=== PATIENT | female | born 1970 ===

== ENCOUNTER 2020-10-06 15:21 | Outpatient (REF) | payer OTHER, SELFPAY ==
--- NOTE | ~2020-10-06 | XR_ITS ---
EXAMINATION: XR BILATERAL SHOULDERS XR BILATERAL KNEES CLINICAL INFORMATION: Bilateral knee pain and bilateral shoulder pain. COMPARISON: Left knee 08/06/2006. TECHNIQUE: 2 views each knee. 4 views each shoulder. FINDINGS: Left Knee: There is severe loss of medial and patellofemoral compartment joint spaces with periarticular spurring. No abnormal joint effusion seen. No bony erosive changes. The soft tissues are normal. Right Knee: There is severe loss of medial and patellofemoral compartment joint spaces right knee with moderate periarticular spurring. There are no loose bodies or bony erosive changes. No abnormal joint effusion seen. Left Shoulder: There is normal maintained glenohumeral and AC joint spaces. No bony erosive changes. No fracture or dislocation. The soft tissues are normal. Right Shoulder: The glenohumeral and AC joint spaces are maintained. No periapical spurring AC joint is noted. No acute fracture, dislocation or loose body seen. The soft tissues are normal. XR/XR knee RT 2V IMPRESSION: Severe degenerative changes medial and patellofemoral compartments both knees with periarticular spurring. No loose bodies or joint effusion seen. Unremarkable left shoulder. Minimal periarticular spurring right AC joint. Otherwise, the shoulder joint is unremarkable.
--- NOTE | ~2020-10-06 | XR_ITS ---
EXAMINATION: XR BILATERAL SHOULDERS XR BILATERAL KNEES CLINICAL INFORMATION: Bilateral knee pain and bilateral shoulder pain. COMPARISON: Left knee 08/06/2006. TECHNIQUE: 2 views each knee. 4 views each shoulder. FINDINGS: Left Knee: There is severe loss of medial and patellofemoral compartment joint spaces with periarticular spurring. No abnormal joint effusion seen. No bony erosive changes. The soft tissues are normal. Right Knee: There is severe loss of medial and patellofemoral compartment joint spaces right knee with moderate periarticular spurring. There are no loose bodies or bony erosive changes. No abnormal joint effusion seen. Left Shoulder: There is normal maintained glenohumeral and AC joint spaces. No bony erosive changes. No fracture or dislocation. The soft tissues are normal. Right Shoulder: The glenohumeral and AC joint spaces are maintained. No periapical spurring AC joint is noted. No acute fracture, dislocation or loose body seen. The soft tissues are normal. XR/XR shoulder RT min 2V IMPRESSION: Severe degenerative changes medial and patellofemoral compartments both knees with periarticular spurring. No loose bodies or joint effusion seen. Unremarkable left shoulder. Minimal periarticular spurring right AC joint. Otherwise, the shoulder joint is unremarkable.
--- NOTE | ~2020-10-06 | XR_ITS ---
EXAMINATION: XR BILATERAL SHOULDERS XR BILATERAL KNEES CLINICAL INFORMATION: Bilateral knee pain and bilateral shoulder pain. COMPARISON: Left knee 08/06/2006. TECHNIQUE: 2 views each knee. 4 views each shoulder. FINDINGS: Left Knee: There is severe loss of medial and patellofemoral compartment joint spaces with periarticular spurring. No abnormal joint effusion seen. No bony erosive changes. The soft tissues are normal. Right Knee: There is severe loss of medial and patellofemoral compartment joint spaces right knee with moderate periarticular spurring. There are no loose bodies or bony erosive changes. No abnormal joint effusion seen. Left Shoulder: There is normal maintained glenohumeral and AC joint spaces. No bony erosive changes. No fracture or dislocation. The soft tissues are normal. Right Shoulder: The glenohumeral and AC joint spaces are maintained. No periapical spurring AC joint is noted. No acute fracture, dislocation or loose body seen. The soft tissues are normal. XR/XR knee LT 2V IMPRESSION: Severe degenerative changes medial and patellofemoral compartments both knees with periarticular spurring. No loose bodies or joint effusion seen. Unremarkable left shoulder. Minimal periarticular spurring right AC joint. Otherwise, the shoulder joint is unremarkable.
--- NOTE | ~2020-10-06 | XR_ITS ---
EXAMINATION: XR BILATERAL SHOULDERS XR BILATERAL KNEES CLINICAL INFORMATION: Bilateral knee pain and bilateral shoulder pain. COMPARISON: Left knee 08/06/2006. TECHNIQUE: 2 views each knee. 4 views each shoulder. FINDINGS: Left Knee: There is severe loss of medial and patellofemoral compartment joint spaces with periarticular spurring. No abnormal joint effusion seen. No bony erosive changes. The soft tissues are normal. Right Knee: There is severe loss of medial and patellofemoral compartment joint spaces right knee with moderate periarticular spurring. There are no loose bodies or bony erosive changes. No abnormal joint effusion seen. Left Shoulder: There is normal maintained glenohumeral and AC joint spaces. No bony erosive changes. No fracture or dislocation. The soft tissues are normal. Right Shoulder: The glenohumeral and AC joint spaces are maintained. No periapical spurring AC joint is noted. No acute fracture, dislocation or loose body seen. The soft tissues are normal. XR/XR shoulder LT min 2V IMPRESSION: Severe degenerative changes medial and patellofemoral compartments both knees with periarticular spurring. No loose bodies or joint effusion seen. Unremarkable left shoulder. Minimal periarticular spurring right AC joint. Otherwise, the shoulder joint is unremarkable.
[2020-10-06 16:01] LABS: MANUAL DIFF FLAG NO
[2020-10-06 16:04] LABS: Basophils Percent Auto 0.4 % (0-2); Eosinophils Percent Auto 0.5 % (0-4); Hematocrit 35.6 % (37-47); Hemoglobin 11.3 g/dl (12.0-16.0); Imm Gran Abs Auto 0.02 X10*3/uL (0.00-0.03); Imm Gran Pct Auto 0.3 % (0.0-0.4); Immature Retic Fraction 13.4 % (3.0-15.9); Lymphocytes Absolute Auto 1.7 X10*3/uL (1.2-4.9); Lymphocytes Percent Auto 22.4 % (20-40); Mean Corpuscular HGB Conc 31.7 g/dl (31.0-35.0); Mean Corpuscular Hemoglobin 27.5 pg (27.0-33.0); Mean Corpuscular Volume 86.6 fL (80-98); Mean Platelet Volume 9.5 fL (9.4-12.3); Monocytes Absolute Auto 0.4 X10*3/uL (0.1-1.2); Monocytes Percent Auto 5.9 % (2-11); Neutrophils Absolute Auto 5.2 X10*3/uL (2.0-8.3); Neutrophils Percent Auto 70.5 % (45-73); Platelet Count 322 X10*3/uL (160-400); Red Blood Count 4.11 X10*6/uL (4.20-5.50); Red Cell Distribution Width 15.5 % (11.0-16.0); Retic HGB Equivalent 30.1 pg (30.0-35.0); Reticulocyte Percent 1.9 % (0.5-1.8); Reticulocytes Absolute 0.078 X10*6/uL (0.026-0.095); White Blood Count 7.4 X10*3/uL (4.8-10.8)
[2020-10-06 16:17] LABS: Glucose Urine UA NEG (NEG); Leukocyte Esterase Urine NEG (NEG); Nitrite Urine NEG (NEG); Urine Blood 3+ (NEG); Urine Ketones NEG (NEG); Urine Protein 1+ MG/DL (NEG-TRACE)
[2020-10-06 16:28] LABS: Appearance Urine HAZY; Color Urine YELLOW
[2020-10-06 16:40] LABS: Alanine Aminotransferase 14 U/L (0-31); Alkaline Phosphatase 118 U/L (39-117); Anion Gap 13 (12-20); Aspartate Amino Transferase 14 U/L (5-31); Bilirubin Total 0.6 mg/dL (0.0-1.0); Blood Urea Nitrogen 11 mg/dL (9-16); Calcium 8.7 mg/dL (8.4-10.2); Carbon Dioxide 30 mmol/L (22-29); Chloride 104 mmol/L (96-108); Cholesterol 136 mg/dL; Estimated Glomerular Filt Rate > 60; Glucose Random 94 mg/dL (60-115); HDL Cholesterol 43 mg/dL; Iron 81 mcg/dL (30-160); LDL Cholesterol Calculated 47 mg/dl; Percent Iron Saturation 22 % (15-50); Potassium 4.1 mmol/L (3.3-5.1); Sodium 143 mmol/L (135-145); Total Iron Binding Capacity 371 mcg/dL (228-428); Triglycerides 230 mg/dL; Unsaturated Iron Binding 290 ug/dL
[2020-10-06 17:03] LABS: Ferritin 10 ng/mL (10-250); Free T4 (Free Thyroxine) 0.98 ng/dL (0.71-1.85); Thyroid Stimulating Hormone 0.96 uIU/mL (0.32-4.0); Vitamin D 25-OH Total 14.2 ng/mL (>30)
[2020-10-06 17:10] LABS: Folate 7.1 ng/mL (> or = 4.0); Vitamin B12 299 pg/mL (200-900)
[2020-10-06 17:15] LABS: Squamous Epithelial Cell Urine 4+ /LPF
[2020-10-07 03:55] LABS: Estimated Average Glucose 103 mg/dL; Hemoglobin A1c % 5.2 %
== END 2020-10-06 15:22 | disposition home or self-care (01) ==
LOC: HO.LAB 15:21
PROVIDERS: PCP Internal Medicine; Visit Provider Internal Medicine
DX: E78.00 Pure hypercholesterolemia, unspecified (principal); M25.511 Pain in right shoulder; M25.512 Pain in left shoulder; M25.561 Pain in right knee; M25.562 Pain in left knee; E66.01 Morbid (severe) obesity due to excess calories; Z68.43 Body mass index [BMI] 50.0-59.9, adult; D64.9 Anemia, unspecified; R73.02 Impaired glucose tolerance (oral)
CPT/HCPCS: 36415; 73030; 73560; 80053; 80061; 81001; 82306; 82607; 82728; 82746; 83036; 83540; 84439; 84443; 85025; 85045

== ENCOUNTER 2020-10-21 09:19 | Outpatient (REF) | payer OTHER, SELFPAY ==
[2020-10-22 11:32] LABS: CT PCR NOT DETECTED (Not Detect.); NG PCR NOT DETECTED (Not Detect.)
[2020-10-22 11:37] LABS: BV Int Neg Control Negative (Negative); BV Int Pos Control Positive (Positive)
[2020-10-23 22:17] LABS: HPV mRNA E6/E7 rflx Not Detected (Not Detected)
== END 2020-10-21 09:20 | disposition home or self-care (01) ==
LOC: HO.LAB 09:19
PROVIDERS: PCP Internal Medicine; Visit Provider Obstetrics & Gynecology
DX: Z01.419 Encounter for gynecological examination (general) (routine) without abnormal findings (principal); N89.8 Other specified noninflammatory disorders of vagina; E66.9 Obesity, unspecified; M79.89 Other specified soft tissue disorders; F17.210 Nicotine dependence, cigarettes, uncomplicated
CPT/HCPCS: 87480; 87491; 87510; 87591; 87624; 87660; 88142

== ENCOUNTER → 2021-02-06 08:40 | Outpatient (BNVA) | payer OTHER, SELFPAY | PROVIDERS: Visit Provider Nurse Practitioner | DX: Z12.11 Encounter for screening for malignant neoplasm of colon (principal) | CPT/HCPCS: 99202 ==

== ENCOUNTER 2021-04-01 13:03 | Outpatient (REF) | payer OTHER, SELFPAY ==
--- NOTE | ~2021-04-01 | MM_ITS ---
EXAMINATION: MM SCREENING DIGITAL BREAST TOMOSYNTHESIS, BILATERAL CLINICAL INFORMATION: Screening. Asymptomatic. Benign left ultrasound guided biopsy 5 10/21/2016 (benign breast tissue with portion of apocrine cyst). The lifetime risk of breast cancer based on the Tyrer-Cuzick Model is 7%. COMPARISON: Mammography: 07/03/2018, 05/26/2017, 11/18/2016, 11/10/2016; ultrasound 11/15/2016, ultrasound guided breast biopsy 11/18/2016. TECHNIQUE: Digital breast tomosynthesis is performed in both the craniocaudal and mediolateral oblique views along with computer-aided detection (CAD). Synthesized 2D images are generated from the tomosynthesis. Additional right MLO view is provided. FINDINGS: There are scattered areas of fibroglandular density (ACR BI-RADS breast composition Category b). There are no significant masses, abnormal calcifications, or other abnormalities. There is biopsy clip marker anterior 9:00 right breast. The bilateral axilla and skin contours are unremarkable. MM/MM tomosynthesis screening BI IMPRESSION: No mammographic evidence of malignancy. ASSESSMENT: BI-RADS 1: Negative RECOMMENDATION: Routine annual mammography screening. This patient's information was entered into a reminder system with a target due date for their next mammogram.
== END 2021-04-01 13:04 | disposition home or self-care (01) ==
LOC: HO.MAMMO 13:03
PROVIDERS: PCP Internal Medicine; Visit Provider Internal Medicine
DX: Z12.31 Encounter for screening mammogram for malignant neoplasm of breast (principal)
CPT/HCPCS: 77063; 77067

== ENCOUNTER → 2021-04-14 08:37 | Outpatient (BNVA) | payer OTHER, SELFPAY | PROVIDERS: PCP Internal Medicine; Visit Provider Nurse Practitioner ==

== ENCOUNTER → 2021-05-11 10:45 | Day surgery (SDC) | payer OTHER, SELFPAY ==
--- NOTE | 2021-03-27 13:25 | HO.ANESPROP2 ---
HPI - Anesthesia Eval Consult details Narrative: 51yo F for Colonoscopy PMFSH Active Problems Active Problems: All Active Problems (Updated 10/03/20 @ 14:24 by Spike Esposito MD) Breast cancer screening by mammogram (Acute) Cervical cancer screening (Acute) Colon cancer screening (Acute) Shoulder pain, bilateral (Acute) Knee pain, bilateral (Acute) Annual physical exam (Acute) Obesity (Acute) Tobacco abuse (Acute) Anemia (Acute) Impaired glucose tolerance (Acute) Asthma (Acute) Past Medical History Medical History Anemia Asthma Impaired glucose tolerance Obesity Tobacco abuse Family History Family History Father Stroke Mother No problems noted. Brother No problems noted. Sister Bipolar 1 disorder Son No problems noted. Daughter No problems noted. Surgical History Surgical History History of section Social History Social History Alcohol intake: current Alcohol intake frequency: a few times a week Years Smoked: smoker 2 x a week 1 Meds Allergies Allergy/AdvReac Type Severity Reaction Status Date / Time No Known Allergies Allergy Verified 03/25/21 11:28 Exam Exam Date and Time: March 27, 2021 1325 Assessment and Plan Assessment Anesthesia Assessment: Chart Reviewed
--- NOTE | 2021-05-08 09:32 | HO.ANESPROP2 ---
HPI - Anesthesia Eval Consult details Narrative: 51yo F for Colonoscopy PMFSH Active Problems Active Problems: All Active Problems (Updated 04/22/21 @ 12:11 by Spike Esposito MD) Osteoarthritis, shoulder (Acute) Knee osteoarthritis (Acute) Cervical cancer screening (Acute) Colon cancer screening (Acute) Obesity (Acute) Tobacco abuse (Acute) Anemia (Acute) Impaired glucose tolerance (Acute) Asthma (Acute) Past Medical History Medical History (Updated 04/22/21 @ 12:11 by Spike Esposito MD) Anemia Asthma Impaired glucose tolerance Obesity Tobacco abuse Family History Family History Father Stroke Mother No problems noted. Brother No problems noted. Sister Bipolar 1 disorder Son No problems noted. Daughter No problems noted. Surgical History Surgical History History of section Social History Social History Housing: Apartment Alcohol intake: current Alcohol intake frequency: a few times a week Patient Tobacco Use Status: Never used Tobacco Years Smoked: smoker 2 x a week 1 e-Cigarette/Vaping Use: Never Used Second Hand Smoke Exposure: No service: No Current occupational status: employed Meds Allergies Allergy/AdvReac Type Severity Reaction Status Date / Time No Known Allergies Allergy Verified 04/22/21 11:45 Exam Exam Date and Time: May 08, 2021 0932 Assessment and Plan Assessment Anesthesia Assessment: Chart Reviewed
--- NOTE | 2021-05-11 10:56 | PC.NURSE ---
Procedure cancelled by Dr Angel. Pt had chicken and pasta for dinner last night, took prep with brown liquid returns. Pt will reschedule with office
== END ==
PROVIDERS: PCP Internal Medicine; Visit Provider Internal Medicine Gastroenterology
DX: Z12.11 Encounter for screening for malignant neoplasm of colon (principal); Z53.8 Procedure and treatment not carried out for other reasons

== ENCOUNTER 2021-05-14 08:29 | Outpatient (REF) | payer OTHER, SELFPAY | END 2021-05-14 08:30 | disposition home or self-care (01) | LOC: HO.HOSX 08:29 | PROVIDERS: Visit Provider Orthopaedic Surgery | DX: Z13.89 Encounter for screening for other disorder (principal) ==

== ENCOUNTER 2021-06-04 09:04 | Outpatient (REF) | payer OTHER, SELFPAY ==
--- NOTE | ~2021-06-04 | XR_ITS ---
EXAMINATION: BILATERAL AP KNEES STANDING. BILATERAL KNEE.. CLINICAL INFORMATION: Bilateral knee pain. COMPARISON: None TECHNIQUE: AP view standing bilateral knee. 2 views each knee. FINDINGS: Bilateral AP knee standing: There is moderate to severe loss of medial compartment joint space both knees with periarticular spurring. There is mild loss of lateral compartment joint space both knees with right knee periarticular spurring. No fracture or loose body seen. Left knee: There is moderate loss of patellofemoral compartment joints space with moderate periarticular spurring no visible acute fracture or lytic process seen. Right knee: There is moderate loss of patellofemoral compartment joint space with periapical spurring. No abnormal joint effusion. No focal acute fracture or dislocation. XR/XR knee LT 2V IMPRESSION: Moderate degenerative changes medial and patellofemoral compartment both knees and mild degenerative changes in lateral compartment both knees No acute fracture or lytic process seen.
--- NOTE | ~2021-06-04 | XR_ITS ---
EXAMINATION: BILATERAL AP KNEES STANDING. BILATERAL KNEE.. CLINICAL INFORMATION: Bilateral knee pain. COMPARISON: None TECHNIQUE: AP view standing bilateral knee. 2 views each knee. FINDINGS: Bilateral AP knee standing: There is moderate to severe loss of medial compartment joint space both knees with periarticular spurring. There is mild loss of lateral compartment joint space both knees with right knee periarticular spurring. No fracture or loose body seen. Left knee: There is moderate loss of patellofemoral compartment joints space with moderate periarticular spurring no visible acute fracture or lytic process seen. Right knee: There is moderate loss of patellofemoral compartment joint space with periapical spurring. No abnormal joint effusion. No focal acute fracture or dislocation. XR/XR knee RT 2V IMPRESSION: Moderate degenerative changes medial and patellofemoral compartment both knees and mild degenerative changes in lateral compartment both knees No acute fracture or lytic process seen.
--- NOTE | ~2021-06-04 | XR_ITS ---
EXAMINATION: BILATERAL AP KNEES STANDING. BILATERAL KNEE.. CLINICAL INFORMATION: Bilateral knee pain. COMPARISON: None TECHNIQUE: AP view standing bilateral knee. 2 views each knee. FINDINGS: Bilateral AP knee standing: There is moderate to severe loss of medial compartment joint space both knees with periarticular spurring. There is mild loss of lateral compartment joint space both knees with right knee periarticular spurring. No fracture or loose body seen. Left knee: There is moderate loss of patellofemoral compartment joints space with moderate periarticular spurring no visible acute fracture or lytic process seen. Right knee: There is moderate loss of patellofemoral compartment joint space with periapical spurring. No abnormal joint effusion. No focal acute fracture or dislocation. XR/XR knee standing BI IMPRESSION: Moderate degenerative changes medial and patellofemoral compartment both knees and mild degenerative changes in lateral compartment both knees No acute fracture or lytic process seen.
== END 2021-06-04 09:05 | disposition home or self-care (01) ==
LOC: HO.HOSX 09:04
PROVIDERS: Visit Provider Orthopaedic Surgery
DX: M17.0 Bilateral primary osteoarthritis of knee (principal); E66.01 Morbid (severe) obesity due to excess calories; Z68.43 Body mass index [BMI] 50.0-59.9, adult; R73.02 Impaired glucose tolerance (oral)
CPT/HCPCS: 20610; 73560; 73565; 99202; J1100

== ENCOUNTER 2021-08-20 09:47 | Day surgery (SDC) | payer OTHER, SELFPAY ==
[2021-08-14 14:18] VITALS: BMI 50.9
--- NOTE | 2021-08-19 10:02 | HO.ANESPROP2 ---
Documented by User: Zoe Freire NP 08/19/21 10:13 HPI - Anesthesia Eval Consult details Narrative: 51yo F Colonoscopy PMFSH Active Problems Active Problems: All Active Problems (Updated 04/22/21 @ 12:11 by Spike Esposito MD) Osteoarthritis, shoulder (Acute) Knee osteoarthritis (Acute) Cervical cancer screening (Acute) Colon cancer screening (Acute) Obesity (Acute) Tobacco abuse (Acute) Anemia (Acute) Impaired glucose tolerance (Acute) Asthma (Acute) Past Medical History Medical History Anemia Asthma Impaired glucose tolerance Obesity Tobacco abuse Family History Family History Father Stroke Mother No problems noted. Brother No problems noted. Sister Bipolar 1 disorder Son No problems noted. Daughter No problems noted. Surgical History Surgical History History of section Hx of breast surgery Social History Social History (Updated 06/04/21 @ 11:20 by Marjan Guzman [facility]) Housing: Apartment Alcohol intake: current Alcohol intake frequency: a few times a week Patient Tobacco Use Status: Never used Tobacco Years Smoked: smoker 2 x a week 1 e-Cigarette/Vaping Use: Never Used Second Hand Smoke Exposure: No Use of substances other than those prescribed or required for medical reasons: No Are you DNR?: No Advance Directives: No Advance Directives Information Provided: Yes service: No Current occupational status: employed 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 Meds Allergies Allergy/AdvReac Type Severity Reaction Status Date / Time No Known Allergies Allergy Verified 08/20/21 10:17 Exam Exam Date and Time: August 19, 2021 1002 Height,Weight and Vital Signs: Height 5 ft 2 in Weight 126.36 kg Assessment and Plan Assessment Anesthesia Assessment: Chart Reviewed Documented by User: Cecille Torres MD 08/20/21 10:33 [facility] Past Medical History Medical History Anemia Asthma Impaired glucose tolerance Obesity Tobacco abuse Functional capacity: independent ambulation Patient : No Family History Family History Father Stroke Mother No problems noted. Brother No problems noted. Sister Bipolar 1 disorder Son No problems noted. Daughter No problems noted. Family history of problems with anesthesia: No Surgical History Surgical History History of section Hx of breast surgery History of Problems with Anesthesia: No Social History Social History (Updated 06/04/21 @ 11:20 by Marjan Guzman [facility]) Housing: Apartment Alcohol intake: current Alcohol intake frequency: a few times a week Patient Tobacco Use Status: Never used Tobacco Years Smoked: smoker 2 x a week 1 e-Cigarette/Vaping Use: Never Used Second Hand Smoke Exposure: No Use of substances other than those prescribed or required for medical reasons: No Are you DNR?: No Advance Directives: No Advance Directives Information Provided: Yes service: No Current occupational status: employed 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 Meds Allergies Allergy/AdvReac Type Severity Reaction Status Date / Time No Known Allergies Allergy Verified 08/20/21 10:17 Exam Airway Mallampati Class: IV TM Dist: >3cm Neck ROM: Full Heart: RRR Lungs: CTA Assessment and Plan Final Anesthetic Review Family History of Problems with Anesthesia: No History of Problems with Anesthesia: No ASA Class: III Final Preanesthetic Review: No Changes in Pt Med Stat, Meds/Allgs Chart Reviewed, Consent Obtained/Reviewed and Anes Risks/Benef Reviewed Patient Risk: Intermediate Procedure Risk: Low Anesthetic Plan Anesthetic Plan: MAC: Disposition: Standard PACU
--- NOTE | 2021-08-20 10:00 | MHC.SHP ---
Pre-Procedural Eval Section A Date of Service: 08/20/21 Section B Chief Complaint: Screening Relevant Family History (Specify if Yes): No Relevant Social History: Tobacco Use Present Medications: see Short Stay Collaborative assessment Medical History: Significant History (Anemia Asthma Impaired glucose tolerance Obesity Tobacco abuse) History of Previous Operations: Relevant previous surgery/procedure and date(s) (History of section) Allergies: Allergies Allergy/AdvReac Type Severity Reaction Status Date / Time No Known Allergies Allergy Verified 04/22/21 11:45 Review of Systems Sugical H&P ROS: Negative: Constitution, Cardiovascular, Respiratory, Neurological, Psychiatric, Hem-Onc, Allergic/Immunologic, Gastrointestinal, Genitourinary, Musculoskeletal, Integumentary, Endocrine and Eyes/Ears/Nose/Throat Exam Surgical H&P Exam: Normal: HEENT, Normal: Heart, Normal: Lungs, Normal: Extremities, Normal: Abdomen, Normal: Skin and Normal: Neurological Plan Diagnosis/Plan: Unchanged I have reviewed the history and physical and performed a pertinent physical examination on my patient. No changes have occurred unless specified.
[2021-08-20 10:15] VITALS: BP 161/79; PULSE 68; RESP 18; TEMP 36.6; O2SAT 97
[2021-08-20] MEDS: Lactated Ringers 1,000 ML 100 ML IVCONT (10:32)
--- NOTE | 2021-08-20 11:16 | P.OP_ITS ---
Operative Note Operative Note Date of Service: 08/20/21 Narrative: Operative Information Procedure Description: Colonoscopy COLONOSCOPY Instrument: Olympus variable stiffness adult scope 190L Colonoscopy Monitoring: Vital signs and clinical assessment, continuous EKG monitoring, Pulse oximetry, Carbon Dioxide monitoring and blood pressure monitoring were done throughout the procedure. Colon withdrawal time was 11 minutes. Procedure: The patient was placed in the left lateral decubitis position and pre-procedure medications were administered. After a digital rectal examination of the ano-rectum, the video colonoscope was inserted into the rectum and advanced through the colon to the cecum/TI. The colonoscope was slowly withdrawn in a retrograde panoramic fashion and the colon mucosa was carefully examined including a retroflexed view of the rectum. Findings and interventions are described below. Procedure Difficulty: easy Findings: Terminal Ileum-normal Cecum:normal Ascending Colon: normal Transverse Colon -normal Descending Colon:normal Sigmoid Colon: mild diverticulosis with small openings Rectum: Retroflexion with small internal hemorrhoids, grade I Anorectum - normal Colon preparation: [place] Bowel Preparation Scale Right colon; 2 Transverse colon: 2 Left colon; 2 (0 = Unprepared colon segment with mucosa not seen due to solid stool that cannot be cleared. 1 = Portion of mucosa of the colon segment seen, but other areas of the colon segment not well seen due to staining, residual stool and/or opaque liquid. 2 = Minor amount of residual staining, small fragments of stool and/or opaque liquid, but mucosa of colon segment seen well. 3 = Entire mucosa of colon segment seen well with no residual staining, small fragments of stool or opaque liquid) Impression and Post Procedure Diagnosis: internal hemorrhoids diverticular disease Plan: High fiber diet leaflet Avoid straining at stool, epsom salts and sitz bath, anusol supps or cream Repeat Colonoscopy in 10 years or earlier if clinically indicated Above findings were reviewed with the patient and relevant handouts were provided if indicated.
--- NOTE | 2021-08-20 11:16 | P.BOP_ITS ---
Brief Operative Note Date of Service: 08/20/21 Pre-op diagnosis: colon cancer screening Post-op diagnosis: same Procedure: see op note Surgeon: Edwige Isbell MD Anesthesia: MAC Was an Fiberglass Boat Finisher used for this Procedure?: No Estimated blood loss (mL): 0 Condition: stable Disposition: PACU
--- NOTE | 2021-08-20 11:43 | P.CONAN_ITS ---
[facility] Active Problems Active Problems: All Active Problems (Updated 04/22/21 @ 12:11 by Spike Esposito MD) Colon cancer screening (Acute) Cervical cancer screening (Acute) Knee osteoarthritis (Acute) Osteoarthritis, shoulder (Acute) Obesity (Acute) Tobacco abuse (Acute) Anemia (Acute) Impaired glucose tolerance (Acute) Asthma (Acute) Past Medical History Medical History Anemia Asthma Impaired glucose tolerance Obesity Tobacco abuse Functional capacity: independent ambulation Family History Family History Father Stroke Mother No problems noted. Brother No problems noted. Sister Bipolar 1 disorder Son No problems noted. Daughter No problems noted. Family history of problems with anesthesia: No Surgical History Surgical History History of section Hx of breast surgery History of Problems with Anesthesia: No Social History Social History (Updated 06/04/21 @ 11:20 by Marjan Guzman 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 Meds Allergies Allergy/AdvReac Type Severity Reaction Status Date / Time No Known Allergies Allergy Verified 08/20/21 10:17 Active Medications: Current Medications Albuterol Sulfate (Albuterol Sulfate (0.083%) 2.5 Mg/3 Ml Vial.Neb) 2.5 mg INHALE ONCE PRN PRN Reason: Shortness of Breath/Wheezing Lactated Ringer's (Lr) 1,000 mls @ 100 mls/hr IVCONT .Q10H NATALI Last Admin: 08/20/21 10:32 Dose: 100 mls/hr Documented by: Exam Exam Date and Time: August 20, 2021 1143 Height,Weight and Vital Signs: Height 5 ft 2 in Weight 126.36 kg Last Vital Signs Temp 97.8 F 08/20/21 10:15 Pulse 68 08/20/21 10:15 Resp 18 08/20/21 10:15 BP 161/79 H 08/20/21 10:15 Pulse Ox 97 08/20/21 10:15 Airway Mallampati Class: III TM Dist: >3cm Neck ROM: Full Heart: RRR Lungs: CTA Assessment and Plan Final Anesthetic Review Family History of Problems with Anesthesia: No History of Problems with Anesthesia: No ASA Class: III Final Preanesthetic Review: No Changes in Pt Med Stat, Meds/Allgs Chart Reviewed, Consent Obtained/Reviewed and Anes Risks/Benef Reviewed Patient Risk: Intermediate Procedure Risk: Low Anesthetic Plan Anesthetic Plan: MAC: Disposition: Standard PACU
[2021-08-20 12:05] VITALS: BP 104/60; PULSE 81; RESP 16; TEMP 36.7; O2SAT 94
[2021-08-20 12:20] VITALS: BP 111/75; PULSE 65; RESP 16; O2SAT 98
--- NOTE | 2021-08-20 12:57 | HO.POSTANES ---
Post Anesthesia Evaluation Post Anesthesia Evaluation Vital Signs: Vital Signs Temp Pulse Resp BP Pulse Ox 08/20/21 12:20 65 16 111/75 98 08/20/21 12:05 98.0 F 81 16 104/60 94 08/20/21 10:15 97.8 F 68 18 161/79 H 97 Anesthesia: Monitored Mental Status: Awake Pain Control: Satisfactory Nausea/Vomiting: None Hydration: Adequate Anesthesia-Related Issues: No Anes. Related Issues
== END 2021-08-20 12:55 | disposition home or self-care (01) ==
PROVIDERS: PCP Internal Medicine; Visit Provider Internal Medicine Gastroenterology
PROC: 0DJD8ZZ Inspection of Lower Intestinal Tract, Via Natural or Artificial Opening Endoscopic (ICD-10-PCS; CPT 45378; principal; 2021-08-20 11:10)
DX: Z12.11 Encounter for screening for malignant neoplasm of colon (principal); K57.30 Diverticulosis of large intestine without perforation or abscess without bleeding; K64.0 First degree hemorrhoids; D64.9 Anemia, unspecified; J45.909 Unspecified asthma, uncomplicated; R73.02 Impaired glucose tolerance (oral); E66.9 Obesity, unspecified; Z79.899 Other long term (current) drug therapy; Z72.0 Tobacco use
CPT/HCPCS: 45378

== ENCOUNTER → 2021-10-15 11:59 | Outpatient (BNVA) | payer OTHER, SELFPAY | PROVIDERS: PCP Internal Medicine; Referring Provider Internal Medicine; Visit Provider Nurse Practitioner | DX: Z71.2 Person consulting for explanation of examination or test findings (principal) | CPT/HCPCS: 99212 ==

== ENCOUNTER 2021-12-11 09:21 | Outpatient (REF) | payer OTHER, SELFPAY ==
[2021-12-11 09:44] LABS: MANUAL DIFF FLAG NO
[2021-12-11 10:11] LABS: Basophils Percent Auto 0.4 % (0-2); Eosinophils Absolute Auto 0.1 X10*3/uL (0.0-0.4); Eosinophils Percent Auto 0.6 % (0-4); Hematocrit 37.3 % (37.0-47.0); Hemoglobin 12.1 g/dl (12.0-16.0); Imm Gran Abs Auto 0.03 X10*3/uL (0.00-0.03); Imm Gran Pct Auto 0.4 % (0.0-0.4); Immature Retic Fraction 10.1 % (3.0-15.9); Lymphocytes Absolute Auto 2.2 X10*3/uL (1.2-4.9); Lymphocytes Percent Auto 26.4 % (20-40); Mean Corpuscular HGB Conc 32.4 g/dl (31.0-35.0); Mean Corpuscular Hemoglobin 29.4 pg (27.0-33.0); Mean Corpuscular Volume 90.5 fL (80.0-98.0); Mean Platelet Volume 9.7 fL (9.4-12.3); Monocytes Absolute Auto 0.6 X10*3/uL (0.1-1.2); Neutrophils Absolute Auto 5.4 x10*3/uL (2.0-8.3); Neutrophils Percent Auto 65.2 % (45-73); Platelet Count 332 X10*3/uL (160-400); Red Blood Count 4.12 X10*6/uL (4.20-5.50); Retic HGB Equivalent 34.6 pg (30.0-35.0); Reticulocyte Percent 2.2 % (0.5-1.8); Reticulocytes Absolute 0.091 X10*6/uL (0.026-0.095); White Blood Count 8.2 X10*3/uL (4.8-10.8)
[2021-12-11 10:20] LABS: Estimated Average Glucose 111 mg/dL; Hemoglobin A1c % 5.5 %
[2021-12-11 10:43] LABS: Alanine Aminotransferase 15 U/L (0-31); Alkaline Phosphatase 115 U/L (39-117); Anion Gap 12 (12-20); Aspartate Amino Transferase 16 U/L (5-31); Bilirubin Total 0.5 mg/dL (0.0-1.0); Blood Urea Nitrogen 13 mg/dL (9-16); Calcium 9.3 mg/dL (8.4-10.2); Carbon Dioxide 27 mmol/L (22-29); Chloride 105 mmol/L (96-108); Cholesterol 193 mg/dL; Estimated Glomerular Filt Rate > 60; Glucose Random 109 mg/dL (60-115); HDL Cholesterol 51 mg/dL; Iron 50 mcg/dL (30-160); LDL Cholesterol Calculated 111 mg/dl; Percent Iron Saturation 15 % (15-50); Potassium 4.2 mmol/L (3.3-5.1); Sodium 140 mmol/L (135-145); Total Iron Binding Capacity 336 mcg/dL (228-428); Total Protein 7.1 g/dL (6.5-8.0); Triglycerides 156 mg/dL; Unsaturated Iron Binding 286 ug/dL
[2021-12-11 11:08] LABS: Ferritin 70 ng/mL (10-250); Free T4 (Free Thyroxine) 1.07 ng/dL (0.71-1.85); Thyroid Stimulating Hormone 1.34 uIU/mL (0.32-4.0); Vitamin D 25-OH Total 12.2 ng/mL (>30)
[2021-12-11 11:14] LABS: Folate 12.1 ng/mL (> or = 4.0); Vitamin B12 333 pg/mL (200-900)
== END 2021-12-11 09:22 | disposition home or self-care (01) ==
LOC: HO.LAB 09:21
PROVIDERS: PCP Internal Medicine; Visit Provider Internal Medicine
DX: M17.0 Bilateral primary osteoarthritis of knee (principal); R73.02 Impaired glucose tolerance (oral); D64.9 Anemia, unspecified; E78.00 Pure hypercholesterolemia, unspecified
CPT/HCPCS: 20610; 36415; 80053; 80061; 82306; 82607; 82728; 82746; 83036; 83540; 84439; 84443; 85025; 85045; 99212; J1100

== ENCOUNTER 2022-04-12 12:24 | Outpatient (REF) | payer OTHER, SELFPAY ==
--- NOTE | ~2022-04-12 | MM_ITS ---
EXAMINATION: MM SCREENING DIGITAL BREAST TOMOSYNTHESIS, BILATERAL CLINICAL INFORMATION: Screening. Asymptomatic. The lifetime risk of breast cancer based on the Tyrer-Cuzick Model is 6%. COMPARISON: Mammography: 04/01/2021, 07/03/2018, 05/26/2017, 11/18/2016, 11/10/2016 TECHNIQUE: Digital breast tomosynthesis is performed in both the craniocaudal and mediolateral oblique views along with computer-aided detection (CAD). Synthesized 2D images are generated from the tomosynthesis. FINDINGS: There are scattered areas of fibroglandular density (ACR BI-RADS breast composition Category b). There are no significant masses, abnormal calcifications, or other abnormalities. There is no interval architectural abnormality or developing density. Biopsy clip marker again seen anterior upper outer right breast. The axilla and skin contours are unremarkable. MM/MM tomosynthesis screening BI IMPRESSION: No mammographic evidence of malignancy. ASSESSMENT: BI-RADS 1: Negative RECOMMENDATION: Routine annual mammography screening. This patient's information was entered into a reminder system with a target due date for their next mammogram.
== END 2022-04-12 12:25 | disposition home or self-care (01) ==
LOC: HO.MAMMO 12:24
PROVIDERS: PCP Internal Medicine; Visit Provider Internal Medicine
DX: Z12.31 Encounter for screening mammogram for malignant neoplasm of breast (principal)
CPT/HCPCS: 77063; 77067

== ENCOUNTER 2022-10-06 12:00 | Outpatient (RCR) | payer OTHER, SELFPAY ==
--- NOTE | 2022-08-25 14:59 | MHC.PT.EP ---
[facility] [place] Office [place] Office [place] Office [address] [phone] F: [phone] F: [phone] F: [phone] F: [phone] Physical Therapy Plan of Care Date of Evaluation: Date of Surgery: N/A Diagnosis: pain in the right knee (RC) Assessment: pt is a 52 y/o female presenting to physical therapy w/ referring diagnosis of pain in right knee. pt's signs and symptoms consistent w/ B knee OA and gross deconditioning. Impairments include pain, decreased range of motion, decreased strength, impaired functional mobility, impaired postural awareness, and altered ambulation mechanics. pt is a good candidate for skilled PT due to age, potential remediation of impairments, typical disease/condition progression and prognosis, comorbidities, and motivation. pt would benefit from skilled PT intervention to provide a tailored strengthening and stretching exercise program, functional training, gait training, postural re-training, neuromuscular re-education, modalities as needed for pain, equipment safety demonstration. Frequency and Duration: The patient will be seen 2x/wk for 4 wks Short Term Goals: pt will be I w/ HEP to promote self-management of condition. pt will improve B knee flexion by 10 degrees to promote ease in ambulation and sitting tolerance. Halfway Goals: pt will report a statistically significant improvement in self-reported outcome measure, LEFI, to promote return to PLOF. pt will ascend/descend 10 stairs w/ reciprocal pattern using railing to promote ease in accessing primary living spaces. Treatment Plan: Modalities to reduce pain, spasms and effusion. Manual therapy to restore motion and function. Therapeutic exercise to improve strength and flexibility. Neuromuscular re-education for posture and balance. Therapeutic activities to return to functional activities of daily living. Electronically signed by: Mouna Angeles PT, DPT Please sign and return to therapist. Thank you for your referral.
--- NOTE | 2022-10-18 16:48 | MHC.PT.DC ---
[facility] [place] Office [place] Office [place] Office [address] 140 [facility] [phone] F: [phone] F: [phone] F: [phone] F: [phone] Physical Therapy Discharge Report Diagnosis: pain in the right knee (RC) Date of Surgery: N/A Date of Evaluation: 08/25/22 Date of Discharge: 10/18/22 Treatments to Date: 6 Cancellations to Date: 5 No Shows to Date: 0 Discharge Status: Patient Elected to Stop Discharge Summary: Per last treatment note on 10/06/22: pt overall not reporting any difference in her symptoms w/ PT thus far. To be honest, she has had poor attendance as she has not been here in 2 weeks. Questionable compliance w/ HEP as well. pt unsure if she wants to continue w/ PT at this time. She sees her primary care next Tuesday. She is going to follow-up w/ Dr. Esposito and determine if she wants to continue to pursue further PT at the time. Electronically signed by: Mouna Angeles PT, DPT Please sign and return to therapist. Thank you for your referral.
== END 2022-10-18 16:48 | disposition home or self-care (01) ==
LOC: HO.PT 12:00
PROVIDERS: PCP Internal Medicine; Visit Provider Nurse Practitioner Family
DX: M25.561 Pain in right knee (principal)
CPT/HCPCS: 97110; 97162; 97530

== ENCOUNTER → 2022-10-27 12:41 | Outpatient (REF) | payer OTHER, SELFPAY ==
[2022-10-27 12:51] LABS: MANUAL DIFF FLAG NO
[2022-10-27 13:16] LABS: Basophils Absolute Auto 0.1 X10*3/uL (0.0-0.2); Basophils Percent Auto 0.7 % (0-2); Eosinophils Absolute Auto 0.1 X10*3/uL (0.0-0.4); Eosinophils Percent Auto 0.7 % (0-4); Hemoglobin 12.5 g/dl (12.0-16.0); Imm Gran Abs Auto 0.03 X10*3/uL (0.00-0.03); Imm Gran Pct Auto 0.3 % (0.0-0.4); Immature Retic Fraction 13.4 % (3.0-15.9); Lymphocytes Absolute Auto 2.4 X10*3/uL (1.2-4.9); Lymphocytes Percent Auto 27.7 % (20-40); Mean Corpuscular HGB Conc 32.9 g/dl (31.0-35.0); Mean Corpuscular Hemoglobin 29.5 pg (27.0-33.0); Mean Corpuscular Volume 89.6 fL (80.0-98.0); Mean Platelet Volume 9.9 fL (9.4-12.3); Monocytes Absolute Auto 0.6 X10*3/uL (0.1-1.2); Monocytes Percent Auto 6.6 % (2-11); Neutrophils Absolute Auto 5.6 x10*3/uL (2.0-8.3); Platelet Count 320 X10*3/uL (160-400); Red Blood Count 4.24 X10*6/uL (4.20-5.50); Red Cell Distribution Width 13.3 % (11.0-16.0); Retic HGB Equivalent 35.5 pg (30.0-35.0); Reticulocytes Absolute 0.086 X10*6/uL (0.026-0.095); White Blood Count 8.8 X10*3/uL (4.8-10.8)
[2022-10-27 13:22] LABS: Estimated Average Glucose 111 mg/dL; Hemoglobin A1c % 5.5 %
[2022-10-27 13:45] LABS: Alanine Aminotransferase 15 U/L (0-31); Alkaline Phosphatase 107 U/L (39-117); Anion Gap 12 (12-20); Aspartate Amino Transferase 15 U/L (5-31); Bilirubin Total 0.5 mg/dL (0.0-1.0); Blood Urea Nitrogen 12 mg/dL (9-16); Calcium 9.1 mg/dL (8.4-10.2); Carbon Dioxide 29 mmol/L (22-29); Chloride 103 mmol/L (96-108); Cholesterol 210 mg/dL; Estimated Glomerular Filt Rate > 60; Glucose Random 112 mg/dL (60-115); HDL Cholesterol 48 mg/dL; Iron 81 mcg/dL (30-160); LDL Cholesterol Calculated 110 mg/dl; Percent Iron Saturation 26 % (15-50); Potassium 4.3 mmol/L (3.3-5.1); Sodium 140 mmol/L (135-145); Total Iron Binding Capacity 306 mcg/dL (228-428); Total Protein 6.9 g/dL (6.5-8.0); Triglycerides 262 mg/dL; Unsaturated Iron Binding 225 ug/dL
[2022-10-27 13:53] LABS: Appearance Urine Cloudy; Color Urine Yellow; Glucose Urine UA Negative (Negative); Leukocyte Esterase Urine Small (1+) (Negative); Nitrite Urine Negative (Negative); UMIC TRIGGER UA YES; Urine Blood Large (3+) (Negative); Urine Ketones Negative (Negative); Urine Protein 30 (1+) mg/dL (Neg-Trace)
[2022-10-27 14:02] LABS: Bacteria Urine Trace (None Seen); Hyaline Casts Urine 0-2 /LPF (0-2); RBC Urine >20 /HPF (0-2); Squamous Epithelial Cell Urine >20 /HPF (0-2)
[2022-10-27 14:13] LABS: Ferritin 75 ng/mL (10-250); Folate 14.6 ng/mL (> or = 4.0); Free T4 (Free Thyroxine) 1.07 ng/dL (0.71-1.85); Thyroid Stimulating Hormone 1.31 uIU/mL (0.32-4.0); Vitamin B12 531 pg/mL (200-900); Vitamin D 25-OH Total 33.5 ng/mL (>30)
== END ==
LOC: HO.SL 12:41
PROVIDERS: PCP Internal Medicine; Visit Provider Internal Medicine
DX: R73.02 Impaired glucose tolerance (oral) (principal); E78.00 Pure hypercholesterolemia, unspecified; G47.33 Obstructive sleep apnea (adult) (pediatric)
CPT/HCPCS: 36415; 80053; 80061; 81001; 82306; 82607; 82728; 82746; 83036; 83540; 84439; 84443; 85025; 85045; 95806

== ENCOUNTER 2023-02-02 13:31 | Outpatient (AMB) | payer OTHER, SELFPAY ==
--- NOTE | 2023-02-02 13:53 | MHC.OFFVIS ---
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 Scribed for ISABELL Mata by Rosana Yan medical collector, on 02/02/2023 at 2:29 pm EST. Chemical Processing Laborer Required: No Information Interpreted: non-clinical & clinical Plumber'S Assistant: Plumber'S Assistant Present (Aidyn) Allergies No Known Allergies Allergy (Verified 02/02/23 13:58) Is last menstrual period known: No HPI HPI Comments History of Present Illness Details She is a postmenopausal woman presenting for annual exam. Reports her last menses was over a year ago and has experienced occasional spotting since then with pelvic cramping. Patient admits she tries to eat a healthy diet including Calcium and Vitamin D. Currently not sexually active. Denies vaginal itching and irritation. STD screening offered; she accepts. Denies family hx of breast, colon and ovarian cancer. Last pap smear 10/22/20 Last mammogram 04/12/22 UTD on colonoscopy. [facility] Medical History Anemia Asthma Bilateral knee pain Bilateral shoulder pain Impaired glucose tolerance Moderate obstructive sleep apnea Obesity Pelvic cramping PMB (postmenopausal bleeding) Tobacco abuse Surgical History H/O colonoscopy History of section Hx of breast surgery Family History Father Stroke Mother No problems noted. Brother No problems noted. Sister Bipolar 1 disorder Son No problems noted. Daughter No problems noted. 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 Cognitive needs: No Hearing needs: No Vision needs: Yes Female Reproductive History Menstrual Age of Menarche: 11 control method: permanent sterilization Total pregnancies: 3 Full term: 3 Number of Living Children: 3 Date of last pap smear: 10/22/20 (negative) Date of Mammogram: 04/12/22 Physical Exam Vital Signs: Last Vital Signs BP 138/76 02/02/23 13:54 BMI result Body Mass Index 53.4 Const General: cooperative, healthy appearing, no acute distress, well developed and alert Orientation/consciousness: patient oriented x3 HEENT Head: Yes normal to inspection Eyes General: appearance normal, both eyes and all related structures Neck Neck: Yes normal visual inspection Thyroid: Thyroid normal Chest Chest palpation & inspection: normal inspection of the chest Breast/axilla inspection: normal inspection of the breasts (no puckering, dimpling, peau de orange, retraction, discharge, masses) Breast/axilla palpation: normal palpation of the breasts Resp Effort & Inspection: normal respiratory effort GI Inspection: Yes normal to inspection and Yes obesity Palpation (GI): Soft to palpation (to palpation) Rectal Exam - Female: deferred Other: small amount of blood noted during exam. General: Yes bladder normal to inspection External Female Exam: normal external appearance and normal appearance of the urethra Speculum Exam - Vagina: normal appearance of the vagina, normal palpation and normal vaginal discharge Speculum Exam - Cervix: normal appearance of the cervix and normal palpation Bimanual exam- vagina & uterus: normal palpation and normal palpation Bimanual Exam- Adnexa, other: normal adnexae and no masses Skin General skin exam: no rashes or lesions noted Neuro General: patient oriented x3 Cognition (Neuro): normal cognition Extrem General: Yes normal to inspection Psych Attitude: cooperative Thought process: Normal thought process present Assessment & Plan Assessment & Plan (1) Encounter for well woman exam: Code(s): Z01.419 - Encounter for gynecological examination (general) (routine) without abnormal findings Plan: Discussed: Current recommendations for pap smears per ASCCP guidelines. Breast awareness and periodic self breast exams. Encouraged yearly mammograms. Maintaining a healthy lifestyle including a well balanced diet including Calcium and Vitamin D and routine exercise. Discussed work up including pelvic US and EMB. The EMB purpose was explained to rule out atypia, hyperplasia and uterine cancer. Reviewed procedure and instructed to take ibuprofen with food 1 hour prior to procedure. Follow up in person for results. Pap, BV testing and GC/CT panel done today. Await results and treat accordingly. Encouraged patient to sign up for patient portal. All of her questions and concerns were addressed to the best of my ability RTO in 1 year for AG. (2) Pelvic cramping: Code(s): R10.2 - Pelvic and perineal pain (3) PMB (postmenopausal bleeding): Code(s): N95.0 - Postmenopausal bleeding Orders: Orders US pelvic and transvaginal Today N95.0 - Postmenopausal bleeding Bacterial Vaginosis Panel Today N95.0 - Postmenopausal bleeding CT NG by PCR Today N95.0 - Postmenopausal bleeding Pap Smear Today N95.0 - Postmenopausal bleeding Coding Level of Care Code Est Pt Prev Care 40-64y(99173) Diagnoses Encounter for well woman exam Z01.419 Pelvic cramping R10.2 PMB (postmenopausal bleeding) N95.0
[2023-02-02 13:54] VITALS: BP 138/76; BMI 53.4
== END 2023-02-02 15:54 | disposition home or self-care (01) ==
LOC: HO.HWS 13:31
PROVIDERS: PCP Internal Medicine; Visit Provider Advanced Practice Midwife
DX: Z01.419 Encounter for gynecological examination (general) (routine) without abnormal findings (principal); R10.2 Pelvic and perineal pain; N95.0 Postmenopausal bleeding
CPT/HCPCS: 99396

== ENCOUNTER 2023-02-02 13:31 | Outpatient (REF) | payer OTHER, SELFPAY ==
[2023-02-03 11:25] LABS: CT PCR NOT DETECTED (Not Detect.); NG PCR NOT DETECTED (Not Detect.)
[2023-02-03 14:07] LABS: BV Int Neg Control Negative (Negative); BV Int Pos Control Positive (Positive)
[2023-02-08 21:23] LABS: HPV mRNA E6/E7 rflx Not Detected (Not Detected)
== END 2023-02-02 13:32 | disposition home or self-care (01) ==
LOC: HO.LNP 13:31
PROVIDERS: PCP Internal Medicine; Visit Provider Advanced Practice Midwife
DX: Z01.419 Encounter for gynecological examination (general) (routine) without abnormal findings (principal); N95.0 Postmenopausal bleeding; R10.2 Pelvic and perineal pain; Z20.2 Contact with and (suspected) exposure to infections with a predominantly sexual mode of transmission
CPT/HCPCS: 0353U; 87480; 87510; 87624; 87660; 88142

== ENCOUNTER 2023-03-31 14:08 | Outpatient (REF) | payer OTHER, SELFPAY ==
--- NOTE | ~2023-03-31 | US_ITS ---
EXAMINATION: US PELVIS CLINICAL INFORMATION: Postmenopausal bleeding. COMPARISON: None available. TECHNIQUE: Ultrasound of the pelvis is performed using both transabdominal and transvaginal transducers along with Doppler. Transvaginal imaging is performed due to inadequate visualization transabdominally. FINDINGS: Uterus: The uterus is anteverted and measures 8.8 x 3.9 x 4.9 cm. The double wall endometrial thickness is 0.9 mm. The uterus is smooth in contour and has normal myometrial echogenicity. No visible fibroid. Nabothian cysts are present in the cervix. Adnexa: Neither ovary could be seen. US/US pelvic and transvaginal IMPRESSION: 1. Abnormally thickened endometrium for a postmenopausal patient. Consider short term interval repeat ultrasound or endometrial biopsy. 2. Neither ovary could be seen.
== END 2023-03-31 14:09 | disposition home or self-care (01) ==
LOC: HO.US 14:08
PROVIDERS: PCP Internal Medicine; Visit Provider Advanced Practice Midwife
DX: N95.0 Postmenopausal bleeding (principal)
CPT/HCPCS: 76830; 76856

== ENCOUNTER 2023-04-13 10:08 | Outpatient (AMB) | payer OTHER, SELFPAY ==
[2023-04-13 10:18] VITALS: BP 120/78; BMI 52.5
--- NOTE | 2023-04-13 10:18 | A.OFFVIS_ITS ---
Intake Vital Signs 04/13/23 10:18 Height 5 ft 2 in Weight 287 lb BMI 52.5 BP 120/78 Intake Visit Reasons: Ultra sound follow up Intake Note: The patient agreed to use of a back office medical assistant during this encounter. Scribed for ISABELL Mata by Rosana Yan back office medical assistant, on 04/13/2023 at 10:28 am EST. Allergies No Known Allergies Allergy (Verified 04/13/23 13:13) HPI HPI Comments History of Present Illness Details She is here to discuss US results regarding PMB. Reports VB has stopped. EMB today. See procedure note. PFSH Medical History PMB (postmenopausal bleeding) Pelvic cramping Moderate obstructive sleep apnea Bilateral shoulder pain Bilateral knee pain Obesity Tobacco abuse Anemia Impaired glucose tolerance Asthma Surgical History H/O colonoscopy Hx of breast surgery History of section Family History Father Stroke Mother No problems noted. Brother No problems noted. Sister Bipolar 1 disorder Son No problems noted. Daughter No problems noted. 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 Cognitive needs: No Hearing needs: No Vision needs: Yes Female Reproductive History Menstrual Age of Menarche: 11 Physical Exam Vital Signs: Last Vital Signs BP 120/78 04/13/23 10:18 BMI result Body Mass Index 52.5 Const General: cooperative, healthy appearing, comfortable, no acute distress, well developed, alert and awake Other: General: Yes bladder normal to palpation External Female Exam: normal external appearance and normal appearance of the urethra Speculum Exam - Vagina: normal appearance of the vagina, normal palpation and normal vaginal discharge Speculum Exam - Cervix: normal appearance of the cervix and normal palpation Bimanual exam- vagina & uterus: normal bimanual exam, normal palpation, bladder normal to palpation and normal palpation Bimanual Exam- Adnexa, other: normal adnexae and no masses Office Procedures Endometrial Biopsy Details: HPI The patient is here today for an endometrial biopsy for PMB to rule out any pathology including atypical, hyperplasia or cancer cells of the uterus. She was counseled regarding anticipatory guidance for the procedure including the risks for pain, infection, bleeding, perforation, potential injury to the tissues may include the cervix, uterus, tubes, bladder and bowels. These injuries may include further treatment and evaluation including surgery, blood transfusions, antibiotics, hospitalizations and anesthesia. Permanent injury and scarring can occur. She was consented for the procedure, and the consent forms were signed. She is agreeable to have the procedure today. All questions were answered. A urine test was obtained and was negative. She denies any risks to . Endometrial Biopsy Procedure The patient was placed in the dorsal lithotomy position and a sterile speculum inserted. Using aseptic technique for the procedure. The cervix was cleansed with Betadine x 3 swabs. Despite repositioning of the tenaculum, unable to pass the pipele beyond the internal os, and due to limited visualization, procedure was not performed, tissue sampling was not obtained. Minimal bleeding was observed. The patient tolerated the procedure well and was in good condition when leaving the department. Endometrial Biopsy Post Procedure Care Schedule EMB with Dr. Helms due to failed procedure. Nothing in the vagina including: tampons, douching or sex for 3 days. There may be some post procedure bleeding for several days, this bleeding is usually light and may turn to a light brown or pink color. Mild cramps may occur. You may take an over the counter mild analgesic such as Tylenol or Advil (if no allergies) per the manufacturers recommendation on dosing, frequency, and follow the directions completely. Call the office if any: SOB, fatigue, lightheadedness/dizziness, abd pain (worse than cramping), bloating or abd distention, foul odor or abnormal discharge or heavy vaginal bleeding. [id number] Biopsy Results Reviewed Results Reviewed: EXAMINATION: US PELVIS CLINICAL INFORMATION: Postmenopausal bleeding. COMPARISON: None available. TECHNIQUE: Ultrasound of the pelvis is performed using both transabdominal and transvaginal transducers along with Doppler. Transvaginal imaging is performed due to inadequate visualization transabdominally. FINDINGS: Uterus: The uterus is anteverted and measures 8.8 x 3.9 x 4.9 cm. The double wall endometrial thickness is 0.9 mm. The uterus is smooth in contour and has normal myometrial echogenicity. No visible fibroid. Nabothian cysts are present in the cervix. Adnexa: Neither ovary could be seen. US/US pelvic and transvaginal IMPRESSION: 1. Abnormally thickened endometrium for a postmenopausal patient. Consider short term interval repeat ultrasound or endometrial biopsy. 2. Neither ovary could be seen. Assessment & Plan Assessment & Plan (1) Encounter to discuss test results: Code(s): Z71.2 - Person consulting for explanation of examination or test findings Plan: Discussed: US findings of: 1. Abnormally thickened endometrium for a postmenopausal patient. Consider short term interval repeat ultrasound or endometrial biopsy. 2. Neither ovary could be seen. All of her questions and concerns were addressed to the best of my ability and shared decision making. She is agreeable to plan of care. (2) PMB (postmenopausal bleeding): Code(s): N95.0 - Postmenopausal bleeding Plan: Discussed EMB. The EMB purpose was explained to rule out atypia, hyperplasia and uterine cancer. EMB today. See procedure note. Coding Level of Care Code Est Pt Level 3 (56608) Diagnoses Encounter to discuss test results Z71.2 PMB (postmenopausal bleeding) N95.0 CPT Codes Endometrial Biopsy - CPT: 07770-[id number] Biopsy ([id number]) Comment Unsure of coding with not able to complete the procedure. Please advise.
== END 2023-04-13 12:41 | disposition home or self-care (01) ==
PROVIDERS: PCP Internal Medicine; Visit Provider Advanced Practice Midwife
DX: N95.0 Postmenopausal bleeding (principal); Z71.2 Person consulting for explanation of examination or test findings
CPT/HCPCS: 58100; 99213

== ENCOUNTER → 2023-04-13 10:08 | Outpatient (BNVA) | payer OTHER, SELFPAY | PROVIDERS: PCP Internal Medicine; Visit Provider Advanced Practice Midwife | DX: Z71.2 Person consulting for explanation of examination or test findings (principal); N95.0 Postmenopausal bleeding; R10.9 Unspecified abdominal pain; E66.9 Obesity, unspecified; Z68.43 Body mass index [BMI] 50.0-59.9, adult; Z53.09 Procedure and treatment not carried out because of other contraindication | CPT/HCPCS: 58100; 99212 ==

== ENCOUNTER 2023-05-06 13:32 | Outpatient (AMB) | payer OTHER, SELFPAY ==
[2023-05-06 13:35] VITALS: BP 122/60; PULSE 65; O2SAT 98; BMI 53.2
--- NOTE | 2023-05-06 13:35 | MHC.PC.OV ---
Vital Signs 05/06/23 13:35 Height 5 ft 2 in Weight 291 lb BMI 53.2 BP 122/60 Blood Pressure Location Lt brachial Position Sitting Pulse 65 Pulse Source Pulse Oximeter Pulse Oximetry (%) 98 Oxygen Delivery Method Room Air Intake Visit Reasons: Follow up on HTN , Cholesterol Allergies No Known Allergies Allergy (Verified 05/06/23 14:55) Medication List - Last Reconciled 05/06/23 by TRISHA Wolf albuterol sulfate 90 mcg/actuation (ProAir HFA) 2 puffs inhalation Q4-6H PRN blood pressure monitor (Blood Pressure Kit) As directed, xtra large cuff cane As directed diclofenac sodium 1% (Arthritis Pain (diclofenac)) 2 grams topical QID PRN lisinopril 5 mg PO DAILY meloxicam 15 mg PO DAILY 30 days Tobacco use date assessed: 10/08/22 Dental Screening Dental Screen Date: 05/06/23 Did you have a dental visit in the last 12 months?: Yes Did you have a dental problem in the last 6 months where you did not have access to dental care?: No Was dental information given to patient?: Patient has dentist HPI HPI Comments History of Present Illness Details 52-year-old obese female with a history of impaired glucose tolerance, asthma, knee osteoarthritis blood pressure elevation , moderate obstructive sleep apnea, repeat sleep study negative for sleep apnea. Patient of Dr. Esposito presents today for follow visit. Patient reports she has recently started to follow-up with weight management. Blood pressure optimal in office today. Patient continues to have bilateral knee pain from osteoarthritis previously followed by orthopedic for cortisone injections, patient questioning if gel injections would be an option for her. Patient advised to follow-up with orthopedic doctor on this matter. Patient states uses [id number] lidocaine gel that helps relieve her knee pain. Fasting blood work ordered. COUNT INCLUDES [facility] Medical History PMB (postmenopausal bleeding) Pelvic cramping Moderate obstructive sleep apnea Bilateral shoulder pain Bilateral knee pain Obesity Tobacco abuse Anemia Impaired glucose tolerance Asthma Surgical History H/O colonoscopy Hx of breast surgery History of section Family History Father Stroke Mother No problems noted. Brother No problems noted. Sister Bipolar 1 disorder Son No problems noted. Daughter No problems noted. 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 1. Little interest or pleasure in doing things: not at all 2. Feeling down, depressed, or hopeless: not at all 3. Trouble falling or staying asleep, or sleeping too much: not at all 4. Feeling tired or having little energy: not at all 5. Poor appetite or overeating: not at all 6. Feeling bad about yourself - or that you are a failure or have let yourself or your family down: not at all 7. Trouble concentrating on things, such as reading the newspaper or watching television: not at all 8. Moving or speaking so slowly that other people could have noticed. Or the opposite - being so fidgety or restless that you have been moving around a lot more than usual: not at all 9. Thoughts that you would be better off or of hurting yourself in some way: not at all Total score: 0 Depression Screening Interpretation: Negative Depression Screening Done: Yes Source: Developed by Drs. Kiko Blackman, Arabella García, Valentin Cardozo and colleagues, with an educational alethea from [employer]. Thrive Questionnaire Date Thrive assessed: 10/08/22 AUDIT C Alcohol Use Questionnaire (AUDIT-C) 1. How often do you have a drink containing alcohol?: Never Total Score: 0 STACY-7 AMB Questionnaire STACY-7 Date STACY - 7 assessed: 10/08/22 Source: Developed by Drs. Kiko Blackman, Arabella García, Valentin Cardozo and colleagues, with an educational alethea from [employer]. Review of Systems Const Denies chills, Denies fatigue, Denies fever(s) and Denies poor appetite Eyes Denies no additional complaints ENT Reports Normal hearing present Card Denies chest pain, Denies syncope, Denies rapid heart rate and Denies dyspnea Resp Denies cough and Denies dyspnea GI Denies change in stool character, Denies constipation, Denies diarrhea, Denies nausea and Denies vomiting Denies urinary frequency, Denies dysuria and Denies urinary urgency Neuro Reports Normal hearing present, Denies confusion and Denies syncope Psych Denies confusion Endo Denies fatigue Physical exam (Primary Care) Vital Signs: Last Vital Signs Pulse 65 05/06/23 13:35 BP 122/60 05/06/23 13:35 Pulse Ox 98 05/06/23 13:35 Oxygen Delivery Method Room Air 05/06/23 13:35 BMI result Body Mass Index 53.2 Tobacco/Smoking Status: Tobacco use Status Tobacco use date assessed 10/08/22 05/06/23 13:36 Patient Tobacco Use Status Former Tobacco user 05/06/23 13:36 e-Cigarette/Vaping Use Never Used 05/06/23 13:36 PHQ-9: PHQ-9 Score PHQ-9: Total score 0 05/06/23 14:14 Depression Screening Interpretation: Negative Thrive Assessment: Date of Thrive Assessment Date Thrive assessed 10/08/22 05/06/23 13:36 Const General: No confusion Orientation/consciousness: No confusion HENMT Head: Yes normocephalic and Yes atraumatic Eyes Conjunctivae: conjunctivae normal Chest Chest palpation & inspection: normal inspection of the chest Resp Effort & Inspection: normal respiratory effort Auscultation: clear to auscultation bilaterally, no crackles, no rhonchi and no wheezes Cardio Rate: regular rate Rhythm: regular rhythm Heart sounds: S1 normal heart sound present and S2 normal heart sound present GI Inspection: Yes normal to inspection Neuro General: No confusion Cranial nerves: Yes Normal hearing present Extrem General: No edema Office Procedures Flu Questionnaire Does the patient have a severe egg allergy?: No Does the patient have severe life threatening allergies?: No Does the patient have a fever or illness today?: No Has the patient ever had Guillain-[place] Syndrome?: No Has the patient ever had any past reaction to a flu shot?: No Immunizations flu vacc [id number] 6mos up(PF) 60 mcg(15 mcgx4)/0.5 mL IM syringe Performing Provider: TRISHA Wolf [facility] Administered by: ARTIE Iverson on 05/06/23 14:14 Dose Route Admin Location Dispensed Lot Number Expiration Date NDC Inside [employer] Recruiter 0.5 mL IM Right Deltoid 0.5 mL [id number] 01/15/24 04359-922-45 eBrisk Video VIS Given Date VIS Provided VIS Publication Date 05/06/23 Single Vaccine 21 Eligibility Eligibility Date Funding Source Not [facility] Eligible 05/06/23 Private Assessment and Plan Assessment & Plan (1) Impaired glucose tolerance: Code(s): R73.02 - Impaired glucose tolerance (oral) Plan: Fasting glucose ordered. (2) Hypertension: Code(s): I10 - Essential (primary) hypertension Plan: Continue on lisinopril 5 mg daily. Follow low-salt diet exercise. Blood pressure goal less than 140/90. (3) Hypertriglyceridemia: Code(s): E78.1 - Pure hyperglyceridemia Plan: Fasting lipid panel ordered. (4) Asthma: Code(s): J45.909 - Unspecified asthma, uncomplicated Qualifiers: Asthma complication type: uncomplicated Asthma persistence: intermittent Asthma severity: mild Qualified Code(s): J45.20 - Mild intermittent asthma, uncomplicated Plan: Continue on albuterol as needed. (5) Knee osteoarthritis: Code(s): M17.10 - Unilateral primary osteoarthritis, unspecified knee Plan: Follow-up with orthopedic. Plan Follow-up in 6 months. Orders: Orders Complete Blood Count Auto Diff Today Z13.0 - Encounter for screening for diseases of the blood and blood-forming organs and certain disorders involving the immune mechanism Comprehensive Frannie. Panel Fast Today I10 - Essential (primary) hypertension Lipid Panel Today Z13.220 - Encounter for screening for lipoid disorders TSH reflex Free T4 Today Z13.29 - Encounter for screening for other suspected endocrine disorder Influenza [id number] Immunization Today Z23 - Encounter for immunization Medications: Refilled albuterol sulfate 90 mcg/actuation (ProAir HFA) 2 puffs inhalation Q4-6H PRN 8.5 grams 0RF shortness of breath or wheezing J45.909 - Unspecified asthma, uncomplicated diclofenac sodium 1% (Arthritis Pain (diclofenac)) apply to single elbow, wrist or hand; for hand includes palm/fingers/back of hand 2 grams topical QID PRN 100 grams 1RF pain M25.511 - Pain in right shoulder, M25.512 - Pain in left shoulder, M25.561 - Pain in right knee, M25.562 - Pain in left knee Coding Level of Care Code Est Pt Level 4 (31897) Diagnoses Impaired glucose tolerance R73.02 Hypertension I10 Hypertriglyceridemia E78.1 Mild intermittent asthma without complication J45.20 Asthma complication type: uncomplicated Asthma persistence: intermittent Asthma severity: mild Knee osteoarthritis M17.10 Additional Codes PHQ-9 - 92108 - PHQ-9 Billing: ([id number])
== END 2023-05-06 14:22 | disposition home or self-care (01) ==
PROVIDERS: PCP Internal Medicine; Visit Provider Nurse Practitioner Family
DX: R73.02 Impaired glucose tolerance (oral) (principal); I10 Essential (primary) hypertension; E78.1 Pure hyperglyceridemia; J45.20 Mild intermittent asthma, uncomplicated; M17.10 Unilateral primary osteoarthritis, unspecified knee; Z23 Encounter for immunization
CPT/HCPCS: 90471; 90686; 99214

== ENCOUNTER 2023-05-12 12:41 | Outpatient (REF) | payer OTHER, SELFPAY ==
--- NOTE | ~2023-05-12 | MM_ITS ---
EXAMINATION: MM SCREENING DIGITAL BREAST TOMOSYNTHESIS, BILATERAL CLINICAL INFORMATION: Screening. Asymptomatic. COMPARISON: Mammography: This study is compared with prior exams dating back to 2017. TECHNIQUE: Digital breast tomosynthesis is performed in both the craniocaudal and mediolateral oblique views along with computer-aided detection (CAD). Synthesized 2D images are generated from the tomosynthesis. FINDINGS: There are scattered areas of fibroglandular density (ACR BI-RADS breast composition Category b). There are no significant masses, abnormal calcifications, or other abnormalities. There is tissue marker present in the right breast from prior benign percutaneous biopsy. MM/MM tomosynthesis screening BI IMPRESSION: No mammographic evidence of malignancy. ASSESSMENT: BI-RADS BI-RADS 2 - Benign Findings RECOMMENDATION: Routine annual mammography screening. 1 year F/U This examination should not preclude the clinical evaluation of a suspicious palpable abnormality. This patient's information was entered into a reminder system with a target due date for their next mammogram.
[2023-05-12 13:28] LABS: MANUAL DIFF FLAG NO
[2023-05-12 14:15] LABS: Basophils Percent Auto 0.5 % (0-2); Eosinophils Percent Auto 0.5 % (0-4); Hematocrit 37.4 % (37.0-47.0); Hemoglobin 12.3 g/dl (12.0-16.0); Imm Gran Abs Auto 0.02 X10*3/uL (0.00-0.03); Imm Gran Pct Auto 0.3 % (0.0-0.4); Lymphocytes Absolute Auto 1.9 X10*3/uL (1.2-4.9); Lymphocytes Percent Auto 24.9 % (20-40); Mean Corpuscular HGB Conc 32.9 g/dl (31.0-35.0); Mean Corpuscular Hemoglobin 29.1 pg (27.0-33.0); Mean Corpuscular Volume 88.4 fL (80.0-98.0); Mean Platelet Volume 9.7 fL (9.4-12.3); Monocytes Absolute Auto 0.5 X10*3/uL (0.1-1.2); Monocytes Percent Auto 6.4 % (2-11); Neutrophils Absolute Auto 5.1 x10*3/uL (2.0-8.3); Neutrophils Percent Auto 67.4 % (45-73); Platelet Count 340 X10*3/uL (160-400); Red Blood Count 4.23 X10*6/uL (4.20-5.50); Red Cell Distribution Width 13.1 % (11.0-16.0); White Blood Count 7.5 X10*3/uL (4.8-10.8)
[2023-05-12 15:18] LABS: Alanine Aminotransferase 17 U/L (0-31); Alkaline Phosphatase 115 U/L (39-117); Anion Gap 12 (12-20); Aspartate Amino Transferase 23 U/L (5-31); Bilirubin Total 0.5 mg/dL (0.0-1.0); Blood Urea Nitrogen 13 mg/dL (9-16); Calcium 9.4 mg/dL (8.4-10.2); Carbon Dioxide 27 mmol/L (22-29); Chloride 105 mmol/L (96-108); Cholesterol 237 mg/dL (<200); Estimated Glomerular Filt Rate > 60; Glucose Fasting 109 mg/dL (60-99); HDL Cholesterol 49 mg/dL (>40); LDL Cholesterol Calculated 141 mg/dL (<100); Potassium 3.9 mmol/L (3.3-5.1); Sodium 140 mmol/L (135-145); Total Protein 7.5 g/dL (6.5-8.0); Triglycerides 236 mg/dL (<150)
[2023-05-12 15:32] LABS: TSH reflex Free T4 0.83 uIU/mL (0.32-4.0)
== END 2023-05-12 12:42 | disposition home or self-care (01) ==
LOC: HO.MAMMO 12:41
PROVIDERS: PCP Internal Medicine; Referring Provider Nurse Practitioner Family; Visit Provider Internal Medicine
DX: I10 Essential (primary) hypertension (principal); Z12.31 Encounter for screening mammogram for malignant neoplasm of breast; Z13.0 Encounter for screening for diseases of the blood and blood-forming organs and certain disorders involving the immune mechanism; Z13.220 Encounter for screening for lipoid disorders; Z13.29 Encounter for screening for other suspected endocrine disorder
CPT/HCPCS: 36415; 77063; 77067; 80053; 80061; 84443; 85025

== ENCOUNTER → 2023-05-12 13:00 | Outpatient (BNV) | payer OTHER, SELFPAY | PROVIDERS: PCP Internal Medicine; Referring Provider Nurse Practitioner Family; Visit Provider Radiology Diagnostic Radiology | DX: Z12.31 Encounter for screening mammogram for malignant neoplasm of breast (principal) | CPT/HCPCS: 77063; 77067 ==

== ENCOUNTER 2023-05-23 12:27 | Outpatient (REF) | payer OTHER, SELFPAY ==
[2023-05-23 13:52] LABS: Estimated Average Glucose 108 mg/dL; Hemoglobin A1c % 5.4 % (<6.0)
[2023-05-23 14:21] LABS: Alanine Aminotransferase 11 U/L (0-31); Albumin Level 4.2 g/dL (3.5-5.0); Alkaline Phosphatase 111 U/L (39-117); Anion Gap 13 (12-20); Aspartate Amino Transferase 14 U/L (5-31); Bilirubin Total 0.3 mg/dL (0.0-1.0); Blood Urea Nitrogen 14 mg/dL (9-16); Calcium 9.2 mg/dL (8.4-10.2); Carbon Dioxide 28 mmol/L (22-29); Chloride 104 mmol/L (96-108); Estimated Glomerular Filt Rate 59; Glucose Fasting 107 mg/dL (60-99); Potassium 3.9 mmol/L (3.3-5.1); Sodium 141 mmol/L (135-145); Total Protein 7.6 g/dL (6.5-8.0)
== END 2023-05-23 12:28 | disposition home or self-care (01) ==
LOC: HO.LAB 12:27
PROVIDERS: PCP Internal Medicine; Visit Provider Nurse Practitioner Family
DX: R73.02 Impaired glucose tolerance (oral) (principal)
CPT/HCPCS: 36415; 80053; 83036

== ENCOUNTER 2023-06-06 12:00 | Outpatient (REF) | payer OTHER, SELFPAY | END 2023-06-06 12:01 | disposition home or self-care (01) | LOC: HO.LAB 12:00 | PROVIDERS: PCP Internal Medicine; Visit Provider Obstetrics & Gynecology | DX: N95.0 Postmenopausal bleeding (principal); Z32.02 Encounter for pregnancy test, result negative | CPT/HCPCS: 58100; 81025; 88305 ==

== ENCOUNTER 2023-06-06 12:00 | Outpatient (AMB) | payer OTHER, SELFPAY ==
--- NOTE | 2023-06-06 12:23 | A.OFFVIS_ITS ---
Intake Vital Signs 06/06/23 12:25 Height 5 ft 2 in Weight 291 lb BMI 53.2 BP 132/70 Intake Visit Reasons: EMB per Sapna Bar Staff: Bar Staff Present (Donna) Allergies No Known Allergies Allergy (Verified 06/06/23 12:24) HPI HPI Comments History of Present Illness Details The patient is presenting referred from Sapna Weeks CNM regarding postmenopausal bleeding. Last co testing was in 02/06 was negative. Pelvic ultrasound was done recently in endometrial stripe measured 9 mm. An attempt for EMB was unsuccessful. PFSH Medical History PMB (postmenopausal bleeding) Pelvic cramping Moderate obstructive sleep apnea Bilateral shoulder pain Bilateral knee pain Obesity Tobacco abuse Anemia Impaired glucose tolerance Asthma Surgical History H/O colonoscopy Hx of breast surgery History of section Family History Father Stroke Mother No problems noted. Brother No problems noted. Sister Bipolar 1 disorder Son No problems noted. Daughter No problems noted. 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 hysteroscopy D&C) & the risks were discussed with the patient including but not limited: pain, uterine perforation, bleeding, infection, possible injury to bladder, bowel, ureter, possible need for blood transfusion with all its possible risks. The patient verbalized understanding all questions answered and signed consent. The patient was placed into the dorsal lithotomy position; a speculum was inserted in the vagina. Using aseptic technique for the procedure, the cervix was cleansed with Betadine. The anterior lip of the cervix was grasped with a single tooth tenaculum. The uterus was sounded to 7 cm with a 4 mm Pipelle was used. Tissues samples were obtained and placed in formalin, in a patient labeled container and sent to the pathology department. At the end of the procedure, there was minimal bleeding noted The patient tolerated the procedure well and was discharged in good condition with the following instructions: Nothing in the vagina until the bleeding stops. No sex until the bleeding stops, to call if any of the following occurs: fever (>100.4), flu-like symptoms, abdominal pain, heavy bleeding, four smelling vaginal discharge. The patient was instructed to schedule a Follow up appointment in 2 weeks to discuss pathology results of the biopsy and treatment options. This note was generated with a voice recognition program. Some errors may have been overlooked during the review of this note. Sometimes these errors may affect the content or meaning of a given sentence. [id number] Biopsy Results AMB Test Urine AMB Test Urine Negative Last Edit by ARTIE Bowers on 06/06/23 12:39 Results Reviewed Results Reviewed: Laboratory Last Values Tst Clinic Negative 06/06/23 12:38 Assessment & Plan Assessment & Plan (1) PMB (postmenopausal bleeding): Code(s): N95.0 - Postmenopausal bleeding Plan: Discussed with the patient the pelvic ultrasound findings, the endometrial stripe thickenss measured by ultrasound was more than 4mm. The negative predictive value, positive predictive value, Sensitivity, specificity of using ultrasound measurement of endometrial stripe to detecting endometrial pathology including hyperplasia , polyp or cancer were discussed with the patient. Recommended to the patient that the next step is an endometrial sampling via hysteroscopy D&C possible polypectomy versus endometrial biopsy to r/o endometrial pathology including hyperplasia or cancer. All the pros and cons risks and benefits of each approach were discussed with the patient, endometrial biopsy being less invasive, office procedure with less sensitivity and inability diagnose a polyp and removal versus hysteroscopy done under anesthesia more invasive more sensitive to endometrial cancer and possibility of diagnosing and endometrial polyp with the possibility of polypectomy. All questions were answered pt verbalized understanding and decided to proceed with endometrial biopsy Orders: Orders AMB HCG Urine Test Today N95.0 - Postmenopausal bleeding, Z32.02 - Encounter for test, result negative AMB Endometrial Biopsy Today N95.0 - Postmenopausal bleeding Coding Level of Care Code Est Pt Level 3 (73896) Diagnoses PMB (postmenopausal bleeding) N95.0 CPT Codes Endometrial Biopsy - CPT: 22414-[id number] Biopsy ([id number])
[2023-06-06 12:25] VITALS: BP 132/70; BMI 53.2
== END 2023-06-06 12:55 | disposition home or self-care (01) ==
LOC: HO.HWS 12:00
PROVIDERS: PCP Internal Medicine; Visit Provider Obstetrics & Gynecology
DX: N95.0 Postmenopausal bleeding (principal); Z32.02 Encounter for pregnancy test, result negative
CPT/HCPCS: 58100

== ENCOUNTER 2023-06-08 08:58 | Outpatient (AMB) | payer OTHER, SELFPAY ==
--- NOTE | 2023-06-08 09:08 | MHC.OFFVIS ---
Intake Vital Signs 06/08/23 09:11 Height 5 ft 2 in Weight 288 lb 12.889 oz BMI 52.8 BP 136/72 Intake Visit Reasons: EMB Results Supervisor Of Operations Required: No Information Interpreted: non-clinical & clinical Operations Project Manager: Operations Project Manager Present Accompanied by: Self / Same As Patient Allergies No Known Allergies Allergy (Verified 06/08/23 09:12) Is last menstrual period known: Yes Last menstrual period: 05/15/20 Post menopausal: Yes Patient : No Do you need a note to return to daycare/school/sports/work: Yes (for surgery on tuesday) HPI HPI Comments History of Present Illness Details Presenting for follow-up after endometrial biopsy. Doing well with no complaints. 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 Brother No problems noted. Sister Bipolar 1 disorder Son No problems noted. Daughter No problems noted. 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 Cognitive needs: No Hearing needs: No Vision needs: Yes Female Reproductive History Menstrual Age of Menarche: 11 Date of last menstrual period: 05/15/20 Total pregnancies: 2 Full term: 2 Review of Systems Card Reports as per HPI and Reports no additional complaints Resp Reports as per HPI and Reports no additional complaints GI Reports as per HPI and Reports no additional complaints Reports as per HPI Physical Exam Vital Signs: Last Vital Signs BP 136/72 06/08/23 09:11 BMI result Body Mass Index 52.8 Const General: cooperative, healthy appearing and comfortable Chest Chest palpation & inspection: normal inspection of the chest and normal palpation of entire chest wall Breast/axilla inspection: normal inspection of the breasts and normal inspection of the axillae Breast/axilla palpation: normal palpation of the breasts, normal palpation of the axillae and no axillary lymphadenopathy Resp Effort & Inspection: normal respiratory effort Auscultation: clear to auscultation bilaterally Percussion: percussion normal Cardio Palpation: normal PMI Rate: regular rate Rhythm: regular rhythm Heart sounds: no murmurs and no rubs Peripheral pulses: Peripheral pulses 2+ throughout GI Inspection: Yes normal to inspection Palpation (GI): Soft to palpation, nontender, no guarding, not rigid and No hepatosplenomegaly present Percussion: Yes normal to percussion Auscultation: normal bowel sounds Rectal Exam - Female: deferred Assessment & Plan Assessment & Plan (1) EIN (endometrial intraepithelial neoplasia): Comment: Borderline adenocarcinoma May 2023 Code(s): N85.02 - Endometrial intraepithelial neoplasia [EIN] Plan: Discussed with the patient is all the pathology showing endometrial hyperplasia with borderline adenocarcinoma in addition discussed with patient potential association with adenocarcinoma, recommended D&C. Discussed with the patient the risk of adenocarcinoma found on a D&C pathology or on samples of hysterectomy even if D&C excluded malignant neoplasm. Discussed with the patient the procedure , all benefits and risks including but not limited to inability to complete the procedure , bleeding, infection, possible need for blood transfusion with all its risk ( HIV,syphilis, Hepatitis, anaphylaxis shock, others..), injury to bladder, rectum, possible need for laparoscopy/laparotomy or hysterectomy. The patient verbalized understanding and signed the consent. Instructions given the patient to schedule a 2 week postoperative appointment Coding Level of Care Code Est Pt Level 3 (28704) Diagnoses EIN (endometrial intraepithelial neoplasia) N85.02
[2023-06-08 09:11] VITALS: BP 136/72; BMI 52.8
== END 2023-06-08 09:37 | disposition home or self-care (01) ==
LOC: HO.HWS 08:58
PROVIDERS: PCP Internal Medicine; Visit Provider Obstetrics & Gynecology
DX: N85.02 Endometrial intraepithelial neoplasia [EIN] (principal)
CPT/HCPCS: 99213

== ENCOUNTER → 2023-06-08 08:58 | Outpatient (BNVA) | payer OTHER, SELFPAY | PROVIDERS: PCP Internal Medicine; Visit Provider Obstetrics & Gynecology | DX: N85.02 Endometrial intraepithelial neoplasia [EIN] (principal) | CPT/HCPCS: 99212 ==

== ENCOUNTER 2023-06-08 09:54 | Emergency (ER) | payer OTHER, SELFPAY ==
--- NOTE | ~2023-06-08 | XR_ITS ---
EXAMINATION: XR CHEST CLINICAL INFORMATION: Cough COMPARISON: None available. TECHNIQUE: Frontal view of the chest was obtained. FINDINGS: Given lordotic positioning, the lungs are considered grossly clear. Vessels are normal. XR/XR chest 1V IMPRESSION: No active disease.
[2023-06-08 10:14] VITALS: BP 164/77; PULSE 75; RESP 18; TEMP 36.4; O2SAT 97; BMI 57.8
[2023-06-08 10:58] LABS: COVID-19 Test Negative (Negative); IDNOW Serial# 9DB6401D
[2023-06-08 12:47] VITALS: BP 139/74; PULSE 73; RESP 20; TEMP 37; O2SAT 99
--- NOTE | 2023-06-08 13:47 | ED_ITS ---
HPI - General Adult General Chief complaint: Upper Respiratory Symptoms Stated complaint: SOB Diff Breathing Time Seen by Provider: 06/08/23 12:19 Source: patient Mode of arrival: ambulatory Limitations: no limitations History of Present Illness HPI narrative: 53-year-old female history of hypertension, high cholesterol, presents to ED for dry cough for couple of days, body aches, and right-sided upper chest wall pain only when she coughs. Patient states her sister also having URI symptoms. Patient denies any leg swelling, calf pain, coughing up blood, recent long travel, recent surgery,pleurisy, or any control use. Related Data Previous Rx's Medication Instructions Recorded meloxicam 15 mg tablet 15 mg PO DAILY 30 days #30 tabs 05/19/22 cane #1 ea 07/22/22 blood pressure monitor (Blood #1 ea 10/08/22 Pressure Kit) lisinopril 5 mg tablet 5 mg PO DAILY #30 tabs 04/27/23 albuterol sulfate 90 mcg/actuation 2 puff inhalation Q4-6H PRN 05/06/23 aerosol inhaler (ProAir HFA) shortness of breath or wheezing #8.5 grams diclofenac sodium 1 % topical gel 2 g topical QID PRN pain #100 grams 05/06/23 (Arthritis Pain (diclofenac)) benzonatate 200 mg capsule 200 mg PO TID PRN cough 5 days #15 06/08/23 caps naproxen 500 mg tablet 500 mg PO BID PRN pain 7 days #14 06/08/23 tabs Allergies Allergy/AdvReac Type Severity Reaction Status Date / Time No Known Allergies Allergy Verified 06/08/23 10:14 Review of Systems 2 Review of Systems: Right upper chest wall pain only when she cough, coughing, body aches Yes all other systems are reviewed and are negative [facility] Past Medical History Medical History PMB (postmenopausal bleeding) Pelvic cramping Moderate obstructive sleep apnea Bilateral shoulder pain Bilateral knee pain Obesity Tobacco abuse Anemia Impaired glucose tolerance Asthma Surgical History H/O colonoscopy Hx of breast surgery History of section Family History Family History Father Stroke Mother No problems noted. Brother No problems noted. Sister Bipolar 1 disorder Son No problems noted. Daughter No problems noted. 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 Cognitive needs: No Hearing needs: No Vision needs: Yes Physical Exam ED Vital Signs: Vital Signs - 24 hr 06/08/23 10:14 06/08/23 12:47 Temperature 97.5 F 98.6 F Pulse Rate 75 73 Respiratory Rate 18 20 Blood Pressure 164/77 H 139/74 Pulse Oximetry 97 99 Oxygen Delivery Method Room Air Room Air BMI result Body Mass Index 57.8 Const General: cooperative, healthy appearing, comfortable, no acute distress, well developed, alert, awake and Physically active Orientation/consciousness: oriented to person, oriented to place, oriented to time and patient oriented x3 HENMT Head: Yes normal to inspection, Yes No palpable skull fracture present, Yes normocephalic and Yes atraumatic Eyes General: appearance normal, both eyes and all related structures Neck Neck: Yes normal visual inspection, Yes full ROM, Yes no lymphadenopathy, Yes no meningeal signs, Yes trachea midline, Yes supple, No anterior neck swelling and No tender Chest Chest palpation & inspection: normal inspection of the chest Chest/axillae images: 2 1. positive for tenderness on palpation. Negative for erythema, crepitus, deformity, or ecchymosis. Resp Effort & Inspection: normal respiratory effort and able to speak in complete sentences Auscultation: clear to auscultation bilaterally Cardio Jugular venous distension: no JVD Heart sounds: S1 normal heart sound present and S2 normal heart sound present GI Inspection: Yes normal to inspection and No abdominal wall ecchymosis Palpation (GI): Soft to palpation, not firm, nontender, no guarding and not rigid General: Yes no CVA tenderness Back/Spine/Pelvis Back: no CVA tenderness and other Skin General skin exam: no rashes or lesions noted, elasticity normal and turgor normal Neuro General: oriented to person, oriented to place, oriented to time, patient oriented x3, gait normal, tone normal, moves all extremities, Normal light touch and pain sensation, no meningeal signs, no focal motor deficits, CN's II-XI intact bilaterally and normal sensation to monofilament Extrem Other: Bilateral lower extremities negative for sweling, pitting edema, redness, or calf pain General: Yes normal to inspection, Yes full ROM and Yes capillary refill normal Psych Appearance: grossly normal, well kempt and not disheveled Medical Decision Making Medical Decision Making [facility] Narrative: [age] Yo female history of high blood pressure and high cholesterol presents to the ED for dry cough, body aches, and right-sided upper chest pain only when she coughs for the past couple of days. Patient states her sister also having similar symptoms. Patient denies any pleurisy, leg swelling, calf pain, coughing up blood, recent long travel, recent surgery, any control pill use. Patient denies increased use of pillows or shortness of breath on exertion. Chest x-ray COVID swab negative. Not suspecting myocardial infarction, pulmonary embolus, CHF, myocarditis, pericardial effusion. Differential Diagnosis Differential Diagnoses: The differential diagnosis associated with the presentation includes ( URI, pneumonia, COVID) Admission/Observation Consideration of admission/observation: Escalation of care including admission/observation considered Lab Data [facility] Lab Attestation statement: I reviewed the patient's lab results. Labs: Lab Results 06/08/23 Range/Units 10:37 COVID-19 ([place]) Negative (Negative) COVID-19 Clin Com See Note Independent Interpretation I performed an independent interpretation of an: Plain X-Ray Radiology Impression Discussion of test interpretation with radiology: I have reviewed the radiologist's reading. External Record Review External record reviewed: Other ( prior visits) Prescription Management I considered prescription management with: Other ( coughing) Discharge Plan Discharge Clinical Impression: Upper respiratory infection, Costochondritis Patient Disposition: Home, Self-Care Instructions: Costochondritis (ED), Upper Respiratory Infection (ED) Additional Instructions: return to the ED immediately for any shortness of breath, leg swelling, calf pain, chest pain on inspiration, coughing up blood, weakness, fever, chills, chest pain/shortness of breath on inspiration, or any other concerning symptoms. please follow up with PCP Prescriptions: New benzonatate 200 mg capsule 200 mg PO TID PRN (Reason: cough) 5 Days Qty: 15 0RF naproxen 500 mg tablet 500 mg PO BID PRN (Reason: pain) 7 Days Qty: 14 0RF No Action meloxicam 15 mg tablet 15 mg PO DAILY 30 Days Qty: 30 1RF lisinopril 5 mg tablet 5 mg PO DAILY Qty: 30 3RF (DME) blood pressure monitor [Blood Pressure Kit] Kit See Rx Instructions .ROUTE .MEDSUPPLY Qty: 1 0RF Rx Instructions: As directed, xtra large cuff albuterol sulfate [ProAir HFA] 90 mcg/actuation HFA aerosol inhaler 2 puff inhalation Q4-6H PRN (Reason: shortness of breath or wheezing) Qty: 8.5 0RF diclofenac sodium [Arthritis Pain (diclofenac)] 1 % gel 2 g topical QID PRN (Reason: pain) Qty: 100 1RF Rx Instructions: apply to single elbow, wrist or hand; for hand includes palm/fingers/back of hand (DME) cane Device See Rx Instructions .Route Qty: 1 0RF Rx Instructions: As directed Stand Alone Forms: Work/School Release Interventions: ED Discharge Assessment Last Done: 06/08/23 14:06 Discharge Date/Time: 06/08/23 14:07 Print Language: Ukrainian
== END 2023-06-08 14:07 | disposition home or self-care (01) ==
PROVIDERS: Emergency Provider Emergency Medicine; PCP Internal Medicine
DX: J06.9 Acute upper respiratory infection, unspecified (principal); M94.0 Chondrocostal junction syndrome [Tietze]; R06.02 Shortness of breath; R05.9 Cough, unspecified; D64.9 Anemia, unspecified; Z11.52 Encounter for screening for COVID-19
CPT/HCPCS: 71045; 87635; 99282; 99283

== ENCOUNTER 2023-06-17 12:04 | Day surgery (SDC) | payer OTHER, SELFPAY ==
--- NOTE | 2023-06-15 15:11 | HO.ANESPROP2 ---
HPI - Anesthesia Eval Consult details Narrative: 53yo F for D&C Hysteroscopy [facility] [place] ED 05/2023 with costochondritis, URI. T/C with pt 06/15/23, symptoms resolved with rx PMFSH Active Problems Active Problems: All Active Problems (Updated 06/09/23 @ 00:01 by Axel Ascencio) EIN (endometrial intraepithelial neoplasia) (Acute) PMB (postmenopausal bleeding) (Acute) Pelvic cramping (Acute) Hypertriglyceridemia (Acute) Hypertension (Acute) Constipation (Acute) Blood pressure elevated without history of HTN (Acute) Bilateral leg edema (Acute) Low vitamin D level (Acute) Annual physical exam (Acute) Colon cancer screening (Acute) Cervical cancer screening (Acute) Knee osteoarthritis (Acute) Osteoarthritis, shoulder (Acute) Obesity (Acute) Anemia (Acute) Impaired glucose tolerance (Acute) Asthma (Acute) Past Medical History Medical History PMB (postmenopausal bleeding) Pelvic cramping Moderate obstructive sleep apnea Bilateral shoulder pain Bilateral knee pain Obesity Tobacco abuse Anemia Impaired glucose tolerance Asthma Family History Family History Father Stroke Mother No problems noted. Brother No problems noted. Sister Bipolar 1 disorder Son No problems noted. Daughter No problems noted. 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
[2023-06-17 12:25] VITALS: BMI 58.0
[2023-06-17 13:08] VITALS: BMI 58.0
[2023-06-17 13:22] VITALS: BP 144/85; PULSE 75; RESP 16; TEMP 37.1; O2SAT 97
--- NOTE | 2023-06-17 13:25 | MHC.SHP ---
Pre-Procedural Eval Section A Date of Service: 06/17/23 The patient is an INPATIENT: No Changes since office visit: No Cold of Flu in the past 2 weeks, No New Medical Problems, No Changes in Medication and No Patient answered all questions The History & Physical has been completed within 30 days and I have reviewed it.: Yes Section B Chief Complaint: Endometrial intraepithelial neoplasia [EIN] Allergies: Allergies Allergy/AdvReac Type Severity Reaction Status Date / Time No Known Allergies Allergy Verified 06/08/23 10:14 Plan Diagnosis/Plan: Unchanged I have reviewed the history and physical and performed a pertinent physical examination on my patient. No changes have occurred unless specified. Time Spent With Patient Time: Total time managing care of this patient today ____ minutes.
--- NOTE | 2023-06-17 14:15 | PM.OP ---
Brief Operative Note Date of Service: 06/17/23 Pre-op diagnosis: EIN, borderline adenocarcinoma Post-op diagnosis: same (Endometrial polyp) Procedure: Hysteroscopy D&C, Polypectomy Surgeon: Waldemar Helms MD Anesthesia: GLMA Was an Inspector Air Carrier used for this Procedure?: No Estimated blood loss (mL): 0 Pathology: other (Endometrial Scrapping. Polyp) Condition: stable Disposition: PACU
--- NOTE | 2023-06-17 14:15 | W.PM.OPN ---
Operative Note Operative Note Date of Service: 06/17/23 Narrative: Preop Diagnosis: EIN borderline adenocarcinoma Operation: Diagnostic Hysteroscopy, Dilataion & Curettage and polypectomy Post Op Diagnosis: Endometrial Polyp QBL: Minimal Anesthesia: GLMA Surgeon: Waldemar Helms MD Health Data Analyst: None Complication: None Pathology: Endometrial Scrapings, Endometrial polyp Procedure: The patient was put in the dorsal lithotomy position, scrubbed, and draped in the usual manner. A sterile speculum was inserted in the patient's vagina. The anterior lip of the cervix was grasped with a single tooth tenaculum. The cervix was dilated up to 5 mm, then the scope was inserted in the patient's uterus. Inspection revealed endometrial polyp. The Myosure Reach device was used; it was introduced through the operative channel and polypectomy done with no complications. The scope was then taken out from the uterine cavity, sharp curettings was carried on with minimal to moderate amount of tissues retrieved. At the end of the procedure, all instruments were taken out of the patient uterine and vaginal cavity. The single tooth tenaculum was removed and homeostasis was assured using pressure,. The patient tolerated the procedure well and was transferred to the PACU in a stable condition.
[2023-06-17 14:22] VITALS: BP 140/74; PULSE 90; RESP 16; TEMP 36.1; O2SAT 99
[2023-06-17 14:27] VITALS: BP 150/84; PULSE 80; RESP 16; O2SAT 97
[2023-06-17 14:32] VITALS: BP 132/91; PULSE 76; RESP 16; O2SAT 97
[2023-06-17 14:37] VITALS: BP 134/75; PULSE 74; RESP 18; TEMP 36.3; O2SAT 98
[2023-06-17 14:52] VITALS: BP 142/66; PULSE 72; RESP 18; TEMP 36.1; O2SAT 98
== END 2023-06-17 15:15 | disposition home or self-care (01) ==
PROVIDERS: PCP Internal Medicine; Visit Provider Obstetrics & Gynecology
PROC: 0UDB8ZZ Extraction of Endometrium, Via Natural or Artificial Opening Endoscopic (ICD-10-PCS; CPT 58558; principal; 2023-06-17 13:30)
DX: N85.02 Endometrial intraepithelial neoplasia [EIN] (principal); G47.33 Obstructive sleep apnea (adult) (pediatric); J45.909 Unspecified asthma, uncomplicated; D64.9 Anemia, unspecified; R73.02 Impaired glucose tolerance (oral); E66.9 Obesity, unspecified; Z68.43 Body mass index [BMI] 50.0-59.9, adult; Z87.891 Personal history of nicotine dependence
CPT/HCPCS: 58558; 88305; J2405; J2704; J3010

== ENCOUNTER → 2023-06-17 12:04 | Outpatient (BNV) | payer OTHER, SELFPAY | PROVIDERS: PCP Internal Medicine; Visit Provider Obstetrics & Gynecology | DX: N84.0 Polyp of corpus uteri (principal) | CPT/HCPCS: 58558 ==

== ENCOUNTER → 2023-06-20 10:07 | Outpatient (BNVA) | payer OTHER, SELFPAY | PROVIDERS: PCP Internal Medicine; Visit Provider Surgery ==

== ENCOUNTER 2023-06-23 08:45 | Outpatient (AMB) | payer OTHER, SELFPAY ==
--- NOTE | 2023-06-23 09:01 | A.OFFVIS_ITS ---
Intake Vital Signs 06/23/23 09:02 Height 5 ft Weight 296 lb BMI 57.8 BP 138/82 Intake Visit Reasons: post op Senior Scientist Required: No Allergies No Known Allergies Allergy (Verified 06/23/23 09:03) Is last menstrual period known: No Post menopausal: Yes Patient : No HPI HPI Comments History of Present Illness Details The patient is presenting post hysteroscopy D&C with no complaints, minimal vaginal bleeding , no feverishness chills or abdominal pain. The patient had a endometrial biopsy for postmenopausal bleeding on 06/06/2023 which showed the following: Endometrium, biopsy: Atypical endometrial hyperplasia/endometrioid intraepithelial neoplasia with extensive squamous metaplasia, bordering on adenocarcinoma (curettage recommended). This was followed by Hysteroscopy/ D&C/polypectomy done on 06/16, the pathology showed the following: A. Endometrium, polypectomy: Atypical endometrial hyperplasia/endometrial intraepithelial hyperplasia (EIN) with squamous metaplasia involving endometrial polyp. B. Endometrium, curettage: Fragments of atypical endometrial hyperplasi a/endometrial intraepithelial hyperplasia (EIN) in a background of inactive endometrium PFSH Medical History PMB (postmenopausal bleeding) Pelvic cramping Moderate obstructive sleep apnea Bilateral shoulder pain Bilateral knee pain Obesity Tobacco abuse Anemia Impaired glucose tolerance Asthma Surgical History H/O colonoscopy Hx of breast surgery History of section Family History Father Stroke Mother No problems noted. Brother No problems noted. Sister Bipolar 1 disorder Son No problems noted. Daughter No problems noted. 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 Cognitive needs: No Hearing needs: No Vision needs: Yes Female Reproductive History Menstrual Age of Menarche: 11 control method: none Date of last pap smear: 02/03/23 (negative) Review of Systems Const All systems reviewed & are unremarkable except as noted in HPI and below Reports as per HPI and Reports no additional complaints GI Reports no additional complaints Reports no additional complaints Physical Exam Vital Signs: Last Vital Signs BP 138/82 06/23/23 09:02 BMI result Body Mass Index 57.8 Assessment & Plan Assessment & Plan (1) EIN (endometrial intraepithelial neoplasia): Comment: Borderline adenocarcinoma May 2023 Code(s): N85.02 - Endometrial intraepithelial neoplasia [EIN] Plan: Discussed with the patient the pathology showing endometrial intraepithelial neoplasia, endometrial hyperplasia with atypia, borderline adenocarcinoma on EMB. Discussed with the patient the following: -If untreated the risk of progression of EIN to endometrial carcinoma is 83 percent, -Coexistent endometrial carcinoma may be present in up to 40 percent of patients with EH with atypia -Given the high risk of concurrent, or progression to, endometrial carcinoma, for most postmenopausal patients hysterectomy for treatment of EH with atypia is the preferred treatment. -Other options of treatment discussed with the patient include Progestin therapy The patient would like to proceed with surgical management, will refer to [facility] at [facility] for further management. Appointment scheduled on 06/28 at 02:20 at [facility], the patient is aware. Instructed the patient to call our office back in case a referral appointment is not scheduled, missed or canceled so that we will assist on rescheduling another appointment, the patient verbalized understanding agreed with the plan. Coding Level of Care Code Est Pt Level 3 (16784) Diagnoses EIN (endometrial intraepithelial neoplasia) N85.02
[2023-06-23 09:02] VITALS: BP 138/82; BMI 57.8
== END 2023-06-23 09:22 | disposition home or self-care (01) ==
LOC: HO.HWS 08:45
PROVIDERS: PCP Internal Medicine; Visit Provider Obstetrics & Gynecology
DX: N85.02 Endometrial intraepithelial neoplasia [EIN] (principal)
CPT/HCPCS: 99213

== ENCOUNTER → 2023-06-23 08:45 | Outpatient (BNVA) | payer OTHER, SELFPAY | PROVIDERS: PCP Internal Medicine; Visit Provider Obstetrics & Gynecology | DX: N85.02 Endometrial intraepithelial neoplasia [EIN] (principal) | CPT/HCPCS: 99212 ==

== ENCOUNTER 2023-11-07 12:54 | Outpatient (AMB) | payer OTHER, SELFPAY ==
[2023-11-07 12:57] VITALS: BP 148/82; PULSE 80; O2SAT 97; BMI 57.6
--- NOTE | 2023-11-07 12:57 | MHC.PC.OV ---
Vital Signs 11/07/23 12:57 Height 5 ft Weight 295 lb BMI 57.6 BP 148/82 H Blood Pressure Location Lt brachial Position Sitting Pulse 80 Pulse Source Pulse Oximeter Pulse Oximetry (%) 97 Oxygen Delivery Method Room Air Intake Visit Reasons: HTN, cholesterol Intake Note: Requesting daily inhaler. Allergies No Known Allergies Allergy (Verified 11/07/23 12:58) Tobacco use date assessed: 11/07/23 Dental Screening Dental Screen Date: 11/07/23 Did you have a dental visit in the last 12 months?: Yes Did you have a dental problem in the last 6 months where you did not have access to dental care?: No Was dental information given to patient?: Patient has dentist HPI HTN, cholesterol HPI Details 53-year-old morbidly obese female with impaired glucose tolerance hypertension hypercholesterolemia asthma knee osteoarthritis last seen in April 2023. Patient's mammogram is up-to-date Pap smear is up-to-date colonoscopy August 2021. Review of the notes in May 2023 had chest wall pain diagnosis of upper respiratory tract infection with costochondritis. [facility] Medical History (Updated 11/07/23 @ 13:43 by Spike Esposito MD) Blood pressure elevated without history of HTN PMB (postmenopausal bleeding) Pelvic cramping Moderate obstructive sleep apnea Bilateral shoulder pain Bilateral knee pain Obesity Tobacco abuse Anemia Impaired glucose tolerance Asthma Surgical History H/O colonoscopy Hx of breast surgery History of section Family History (Updated 11/07/23 @ 12:59 by Carolyne Ellis CMA) Father Stroke Mother No problems noted. Brother No problems noted. Sister Bipolar 1 disorder Son No problems noted. Daughter No problems noted. Social History Housing: Apartment Alcohol intake: current Alcohol intake frequency: a few times a week Patient Tobacco Use Status: Former Tobacco user Tobacco use type: Cigarette Years Smoked: smoker 2 x a week 1 quit 07/2021 e-Cigarette/Vaping Use: Never Used Second Hand Smoke Exposure: No service: No Current occupational status: employed Current occupation: [employer] Cognitive needs: No Hearing needs: No Vision needs: Yes Female Reproductive History Menstrual Age of Menarche: 11 Questionnaire PHQ-9 Over the last 2 weeks, how often have you been bothered by any of the following problems? 1. Little interest or pleasure in doing things: not at all 2. Feeling down, depressed, or hopeless: not at all 3. Trouble falling or staying asleep, or sleeping too much: not at all 4. Feeling tired or having little energy: not at all 5. Poor appetite or overeating: not at all 6. Feeling bad about yourself - or that you are a failure or have let yourself or your family down: not at all 7. Trouble concentrating on things, such as reading the newspaper or watching television: not at all 8. Moving or speaking so slowly that other people could have noticed. Or the opposite - being so fidgety or restless that you have been moving around a lot more than usual: not at all 9. Thoughts that you would be better off or of hurting yourself in some way: not at all Total score: 0 Depression Screening Interpretation: Negative Depression Screening Done: Yes Source: Developed by Drs. Kiko Blackman, Arabella García, Valentin Cardozo and colleagues, with an educational alethea from [employer]. Thrive Questionnaire Date Thrive assessed: 11/07/23 I am a: Patient What is your living situation today?: I have a steady place to live Within the past 12 months, did the food you bought not last and you didn't have the money to get more?: Never true Within the past 12 months, did you worry whether your food would run out before you got money to buy more?: Never true Do you have trouble paying for medicines?: No Do you have trouble getting transportation to medical appointments?: No Do you have trouble paying your heating and electricity bill?: No Do you have trouble taking care of your child, family member or friend?: No Do you have trouble with day-to-day activities such as bathing, preparing meals, shopping, managing finances, etc.?: No Are you currently unemployed and looking for a job?: No Are you interested in more education?: No Currently or been in a relationship where the following occur: no concerns reported THRIVE Score: 0 AUDIT C Alcohol Use Questionnaire (AUDIT-C) 1. How often do you have a drink containing alcohol?: Never Total Score: 0 STACY-7 AMB Questionnaire STACY-7 Date STACY - 7 assessed: 11/07/23 Feeling nervous, anxious, or on edge: 0 = Not at all Not being able to stop or control worryin = Not at all Worrying too much about different things: 0 = Not at all Trouble relaxin = Not at all Being so restless that it is hard to sit still: 0 = Not at all Becoming easily annoyed or irritable: 0 = Not at all Feeling afraid as if something awful might happen: 0 = Not at all Total STACY-7 score (0-4 normal; 5-9 mild; 10-14 moderate; 15-21 severe): 0 Source: Developed by Drs. Kiko Blackman, Arabella García, Valentin Cardozo and colleagues, with an educational alethea from [employer]. Physical exam (Primary Care) Vital Signs: Last Vital Signs Pulse 80 11/07/23 12:57 BP 148/82 H 11/07/23 12:57 Pulse Ox 97 11/07/23 12:57 Oxygen Delivery Method Room Air 11/07/23 12:57 BMI result Body Mass Index 57.6 Tobacco/Smoking Status: Tobacco use Status Tobacco use date assessed 11/07/23 11/07/23 12:59 Patient Tobacco Use Status Former Tobacco user 11/07/23 12:59 Tobacco use type Cigarette 11/07/23 12:59 e-Cigarette/Vaping Use Never Used 11/07/23 12:59 PHQ-9: PHQ-9 Score PHQ-9: Total score 0 11/07/23 13:01 Depression Screening Interpretation: Negative Thrive Assessment: Date of Thrive Assessment Date Thrive assessed 11/07/23 11/07/23 13:01 Currently or been in a relationship where the following occur: no concerns reported Const General: alert; No acute distress Eyes Conjunctivae: conjunctivae normal Resp Auscultation: clear to auscultation bilaterally Cardio Rate: regular rate Rhythm: regular rhythm GI Inspection: Yes normal to inspection Extrem General: Yes normal to inspection and No edema Assessment and Plan Assessment & Plan (1) Obesity: Code(s): E66.9 - Obesity, unspecified Qualifiers: Obesity type: due to excess calories Obesity classification: adult class 3 (BMI >= 40) Serious obesity comorbidity presence: with serious comorbidity Body mass index: BMI 50.0-59.9 Qualified Code(s): E66.01 - Morbid (severe) obesity due to excess calories; Z68.43 - Body mass index [BMI] 50.0-59.9, adult Plan: Diet and exercise (2) Impaired glucose tolerance: Code(s): R73.02 - Impaired glucose tolerance (oral) Plan: Decrease the amount of carbohydrate intake, pasta, bread, rice and potatoes are all sugar and that is aside from all the sweet stuff, remember that fruits are good but they are Sweet also. (3) Asthma: Code(s): J45.909 - Unspecified asthma, uncomplicated Qualifiers: Asthma severity: mild Asthma persistence: intermittent Asthma complication type: uncomplicated Qualified Code(s): J45.20 - Mild intermittent asthma, uncomplicated Plan: Continue with inhaler as needed (4) Hypertension: Code(s): I10 - Essential (primary) hypertension Plan: Continue with blood pressure medication. Decrease salt intake and exercise increase in dose of the lisinopril advised to check blood work in a couple of months (5) Hypertriglyceridemia: Code(s): E78.1 - Pure hyperglyceridemia Plan: Avoid fried foods, chicken skin, eggs, butter margarine, pastries and meat. Be it pork or beef they have a lot of cholesterol LDL goal of less than 130 and triglyceride of less than 150 retest blood work in 2 months (6) Rhinitis, allergic: Code(s): J30.9 - Allergic rhinitis, unspecified Plan: Advised to take allergy medication either Claritin or Rashida once a day Orders: Orders Hemoglobin A1c 2 Months R73.02 - Impaired glucose tolerance (oral) Lipid Panel 2 Months E78.00 - Pure hypercholesterolemia, unspecified, R73.02 - Impaired glucose tolerance (oral) Comprehensive Met. Panel 2 Months R73.02 - Impaired glucose tolerance (oral) Medications: Changed From lisinopril 5 mg PO DAILY 90 tabs 1RF I10 - Essential (primary) hypertension To lisinopril 10 mg PO DAILY 30 days 30 tabs 4RF I10 - Essential (primary) hypertension Coding Level of Care Code Est Pt Level 4 (32555) Diagnoses Class 3 severe obesity due to excess calories with serious comorbidity and body mass index (BMI) of 50.0 to 59.9 in adult E66.01; Z68.43 Obesity type: due to excess calories Obesity classification: adult class 3 (BMI >= 40) Serious obesity comorbidity presence: with serious comorbidity Body mass index: BMI 50.0-59.9 Impaired glucose tolerance R73.02 Mild intermittent asthma without complication J45.20 Asthma severity: mild Asthma persistence: intermittent Asthma complication type: uncomplicated Hypertension I10 Hypertriglyceridemia E78.1 Rhinitis, allergic J30.9 Additional Codes PHQ-9 - 12205 - PHQ-9 Billing: ([id number])
== END 2023-11-07 13:48 | disposition home or self-care (01) ==
LOC: HO.HMGH 12:55
PROVIDERS: PCP Internal Medicine; Visit Provider Internal Medicine
DX: E66.01 Morbid (severe) obesity due to excess calories (principal); Z68.43 Body mass index [BMI] 50.0-59.9, adult; R73.02 Impaired glucose tolerance (oral); J45.20 Mild intermittent asthma, uncomplicated; I10 Essential (primary) hypertension; E78.1 Pure hyperglyceridemia; J30.9 Allergic rhinitis, unspecified
CPT/HCPCS: 99214

== ENCOUNTER 2023-12-15 11:54 | Outpatient (REF) | payer OTHER, SELFPAY ==
[2023-12-15 12:49] LABS: Estimated Average Glucose 111 mg/dL; Hemoglobin A1c % 5.5 % (<6.0)
[2023-12-15 13:07] LABS: Alanine Aminotransferase 13 U/L (0-31); Albumin Level 4.1 g/dL (3.5-5.0); Alkaline Phosphatase 115 U/L (39-117); Anion Gap 11 (12-20); Aspartate Amino Transferase 13 U/L (5-31); Bilirubin Total 0.4 mg/dL (0.0-1.0); Blood Urea Nitrogen 13 mg/dL (9-16); Calcium 9.6 mg/dL (8.4-10.2); Carbon Dioxide 29 mmol/L (22-29); Chloride 106 mmol/L (96-108); Cholesterol 167 mg/dL (<200); Estimated Glomerular Filt Rate > 60; Glucose Random 117 mg/dL (60-115); HDL Cholesterol 47 mg/dL (>40); LDL Cholesterol Calculated 90 mg/dL (<100); Potassium 3.8 mmol/L (3.3-5.1); Sodium 142 mmol/L (135-145); Total Protein 7.4 g/dL (6.5-8.0); Triglycerides 154 mg/dL (<150)
== END 2023-12-15 11:55 | disposition home or self-care (01) ==
LOC: HO.LAB 11:54
PROVIDERS: PCP Internal Medicine; Visit Provider Internal Medicine
DX: R73.02 Impaired glucose tolerance (oral) (principal); E78.00 Pure hypercholesterolemia, unspecified
CPT/HCPCS: 36415; 80053; 80061; 83036

== ENCOUNTER 2024-01-12 13:33 | Outpatient (AMB) | payer OTHER, SELFPAY ==
[2024-01-12 13:34] VITALS: BP 162/80; PULSE 92; O2SAT 97; BMI 56.1
--- NOTE | 2024-01-12 13:36 | A.OFFPC_ITS ---
Vital Signs 01/12/24 13:34 01/12/24 14:00 Height 5 ft Weight 287 lb 0.6 oz BMI 56.1 BP 162/80 H 144/70 H Blood Pressure Location Lt brachial Lt brachial Position Sitting Sitting Pulse 92 Pulse Source Pulse Oximeter Pulse Oximetry (%) 97 Oxygen Delivery Method Room Air Intake Visit Reasons: Hypertension Intake Note: patient states bilateral shoulder and knee pain Allergies No Known Allergies Allergy (Verified 01/12/24 13:41) Medication List - Last Reconciled 01/12/24 by Spike Esposito MD albuterol sulfate 90 mcg/actuation (ProAir HFA) 2 puffs inhalation Q4-6H PRN blood pressure monitor (Blood Pressure Kit) As directed, xtra large cuff cane As directed lisinopril 20 mg PO DAILY 30 days Tobacco use date assessed: 11/07/23 Dental Screening Dental Screen Date: 11/07/23 HPI Hypertension HPI Details 53-year-old morbidly obese female with i mpaired glucose tolerance hypertension asthma hypercholesterolemia coming in for follow-up. Last seen in 11/05/2023. Patient's mammogram is up-to-date colonoscopy up-to-date 09/06/2021 [facility] Medical History (Updated 01/12/24 @ 13:57 by Spike Esposito MD) Blood pressure elevated without history of HTN PMB (postmenopausal bleeding) Pelvic cramping Moderate obstructive sleep apnea Bilateral shoulder pain Bilateral knee pain Obesity Tobacco abuse Anemia Impaired glucose tolerance Asthma Surgical History (Updated 01/12/24 @ 13:57 by Spike Esposito MD) S/P STEVE-BSO H/O colonoscopy Hx of breast surgery History of section Family History (Updated 11/07/23 @ 12:59 by Carolyne Ellis [facility]) Father Stroke Mother No problems noted. Brother No problems noted. Sister Bipolar 1 disorder Son No problems noted. Daughter No problems noted. Social History Housing: Apartment Alcohol intake: current Alcohol intake frequency: a few times a week Patient Tobacco Use Status: Former Tobacco user Tobacco use type: Cigarette Years Smoked: smoker 2 x a week 1 quit 07/2021 e-Cigarette/Vaping Use: Never Used Second Hand Smoke Exposure: No service: No Current occupational status: employed Current occupation: [employer] Cognitive needs: No Hearing needs: No Vision needs: Yes Female Reproductive History Menstrual Age of Menarche: 11 Questionnaire Thrive Questionnaire Date Thrive assessed: 11/07/23 I am a: Patient What is your living situation today?: I have a steady place to live Within the past 12 months, did the food you bought not last and you didn't have the money to get more?: Never true Within the past 12 months, did you worry whether your food would run out before you got money to buy more?: Never true Do you have trouble paying for medicines?: No Do you have trouble getting transportation to medical appointments?: No Do you have trouble paying your heating and electricity bill?: No Do you have trouble taking care of your child, family member or friend?: No Do you have trouble with day-to-day activities such as bathing, preparing meals, shopping, managing finances, etc.?: No Are you currently unemployed and looking for a job?: No Are you interested in more education?: No THRIVE Score: 0 AUDIT C Alcohol Use Questionnaire (AUDIT-C) 1. How often do you have a drink containing alcohol?: Never 3. How often do you have six or more drinks on one occasion?: Never Total Score: 0 STACY-7 AMB Questionnaire STACY-7 Date STACY - 7 assessed: 11/07/23 Source: Developed by Drs. Kiko Blackman, Arabella García, Valentin Cardozo and colleagues, with an educational alethea from [employer]. Physical exam (Primary Care) Vital Signs: Last Vital Signs Pulse 92 01/12/24 13:34 BP 162/80 H 01/12/24 13:34 Pulse Ox 97 01/12/24 13:34 Oxygen Delivery Method Room Air 01/12/24 13:34 BMI result Body Mass Index 56.1 Tobacco/Smoking Status: Tobacco use Status Tobacco use date assessed 11/07/23 01/12/24 13:44 Patient Tobacco Use Status Former Tobacco user 01/12/24 13:44 Tobacco use type Cigarette 01/12/24 13:44 e-Cigarette/Vaping Use Never Used 01/12/24 13:44 Thrive Assessment: Date of Thrive Assessment Date Thrive assessed 11/07/23 01/12/24 13:44 Const General: alert; No acute distress Eyes Conjunctivae: conjunctivae normal Resp Auscultation: clear to auscultation bilaterally Cardio Rate: regular rate Rhythm: regular rhythm GI Inspection: Yes normal to inspection Extrem General: Yes normal to inspection and No edema Assessment and Plan Assessment & Plan (1) Impaired glucose tolerance: Code(s): R73.02 - Impaired glucose tolerance (oral) Plan: Decrease the amount of carbohydrate intake, pasta, bread, rice and potatoes are all sugar and that is aside from all the sweet stuff, remember that fruits are good but they are Sweet also. (2) Obesity: Code(s): E66.9 - Obesity, unspecified Qualifiers: Obesity type: due to excess calories Obesity classification: adult class 3 (BMI >= 40) Serious obesity comorbidity presence: with serious comorbidity Body mass index: BMI 50.0-59.9 Qualified Code(s): E66.01 - Morbid (severe) obesity due to excess calories; Z68.43 - Body mass index [BMI] 50.0- 59.9, adult Plan: Diet and exercise noted 8 lb weight loss (3) Hypertension: Code(s): I10 - Essential (primary) hypertension Plan: Continue with blood pressure medication. Decrease salt intake and exercise on lisinopril 10 mg once a day. Blood pressure remains elevated increase lisinopril to 20 mg once a day and monitor. (4) Hypercholesterolemia: Code(s): E78.00 - Pure hypercholesterolemia, unspecified Plan: Avoid fried foods, chicken skin, eggs, butter margarine, pastries and meat. Be it pork or beef they have a lot of cholesterol LDL goal of less than 130 and triglyceride of less than 150. 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 Orders: Referrals Orthopedics Referral M17.10 - Unilateral primary osteoarthritis, unspecified knee Medications: New naproxen (EC-Naproxen) 500 mg PO Q12H PRN 20 tabs 0RF pain M17.10 - Unilateral primary osteoarthritis, unspecified knee Changed From lisinopril 10 mg PO DAILY 30 days 30 tabs 4RF I10 - Essential (primary) hypertension To lisinopril 20 mg PO DAILY 30 days 30 tabs 4RF I10 - Essential (primary) hypertension Coding Level of Care Code Est Pt Level 4 (62854) Diagnoses Impaired glucose tolerance R73.02 Class 3 severe obesity due to excess calories with serious comorbidity and body mass index (BMI) of 50.0 to 59.9 in adult E66.01; Z68.43 Obesity type: due to excess calories Obesity classification: adult class 3 (BMI >= 40) Serious obesity comorbidity presence: with serious comorbidity Body mass index: BMI 50.0-59.9 Hypertension I10 Hypercholesterolemia E78.00 EIN (endometrial intraepithelial neoplasia) N85.02 Knee osteoarthritis M17.10
[2024-01-12 14:00] VITALS: BP 144/70
== END 2024-01-12 14:10 | disposition home or self-care (01) ==
PROVIDERS: PCP Internal Medicine; Visit Provider Internal Medicine
DX: R73.02 Impaired glucose tolerance (oral) (principal); E66.01 Morbid (severe) obesity due to excess calories; Z68.43 Body mass index [BMI] 50.0-59.9, adult; I10 Essential (primary) hypertension; E78.00 Pure hypercholesterolemia, unspecified; N85.02 Endometrial intraepithelial neoplasia [EIN]; M17.10 Unilateral primary osteoarthritis, unspecified knee
CPT/HCPCS: 99214

== ENCOUNTER 2024-02-20 10:34 | Outpatient (AMB) | payer OTHER, SELFPAY ==
--- NOTE | 2024-02-20 10:36 | MHC.OFFVIS ---
Intake Visit Reasons: OV- B/L knee pain/ OA Intake Note: Symone 51 yr old female presents today for her follow up visit for B/L O.A knee pain. States last injection from 12/11/21 was helpful and she would like to repeat injections today Allergies No Known Allergies Allergy (Verified 01/12/24 13:41) HPI HPI OV- B/L knee pain/ OA: Details: Symone 51 yr old female presents today for her follow up visit for B/L O.A knee pain. States last injection from 12/11/21 was helpful and she would like to repeat injections today PFSH Medical History (Updated 01/12/24 @ 13:57 by Spike Esposito MD) Blood pressure elevated without history of HTN PMB (postmenopausal bleeding) Pelvic cramping Moderate obstructive sleep apnea Bilateral shoulder pain Bilateral knee pain Obesity Tobacco abuse Anemia Impaired glucose tolerance Asthma Surgical History (Updated 01/12/24 @ 13:57 by Spike Esposito MD) S/P STEVE-BSO H/O colonoscopy Hx of breast surgery History of section Family History (Updated 11/07/23 @ 12:59 by Carolyne Ellis [facility]) Father Stroke Mother No problems noted. Brother No problems noted. Sister Bipolar 1 disorder Son No problems noted. Daughter No problems noted. Social History Housing: Apartment Alcohol intake: current Alcohol intake frequency: a few times a week Patient Tobacco Use Status: Former Tobacco user Tobacco use type: Cigarette Years Smoked: smoker 2 x a week 1 quit 07/2021 e-Cigarette/Vaping Use: Never Used Second Hand Smoke Exposure: No service: No Current occupational status: employed Current occupation: [employer] Cognitive needs: No Hearing needs: No Vision needs: Yes Female Reproductive History Menstrual Age of Menarche: 11 Physical Exam Const General: no acute distress and alert Orientation/consciousness: patient oriented x3 Neuro General: patient oriented x3 Extrem Other: Bilateral Knees: TTP medial and retropatellar bilateral kness nl gait no effusion Office Procedures Joint Injection/Aspiration Joint Injection/Aspiration Details: Injected 1 mL of Decadron and 3 mL 1% lidocaine and 3 mL of 0.25% Marcaine. Site was prepped using aseptic technique. Patient tolerated the procedure well. Primary Site: right knee Secondary Site: left knee Coding - Large joint 45135 - Glenohumeral/Tronchanteric Bursa/Intraarticular Procedure code (CPT) selection complete Assessment & Plan Assessment & Plan (1) Knee osteoarthritis: Code(s): M17.10 - Unilateral primary osteoarthritis, unspecified knee Category: Medical Plan: Injected bilateral knees Coding Level of Care Code Est Pt Level 3 (51055) Diagnoses Knee osteoarthritis M17.10 CPT Codes Coding - Large joint: 53085 - Large joint ([id number]) Coding - Joint 7: 65512 - Glenohumeral/Tronchanteric Bursa/Intraarticular ([id number])
== END 2024-02-20 10:59 | disposition home or self-care (01) ==
PROVIDERS: PCP Internal Medicine; Visit Provider Orthopaedic Surgery
DX: M17.10 Unilateral primary osteoarthritis, unspecified knee (principal)
CPT/HCPCS: 20610

== ENCOUNTER → 2024-02-20 10:34 | Outpatient (BNVA) | payer OTHER, SELFPAY | PROVIDERS: PCP Internal Medicine; Visit Provider Orthopaedic Surgery | DX: M17.0 Bilateral primary osteoarthritis of knee (principal) | CPT/HCPCS: 20610; J0665; J1100 ==

== ENCOUNTER 2024-05-09 12:35 | Outpatient (AMB) | payer OTHER, SELFPAY ==
--- NOTE | 2024-05-09 12:46 | A.OFFVIS_ITS ---
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 She is doing well with no concerns: bloating, gassy, occasional constipation. Attempting to eat a healthy diet with calcium and vitamin D and stays active w hen possible due to knee pain. Currently not sexually active in many years. Denies any vaginal dryness or irritation. STEVE/BSO 07/2023 due to EIN. Last mammogram; booked for 05/17/2024. Colonoscopy is UTD. Denies any family history of breast, ovarian or colon cancer. [facility] Medical History (Updated 05/09/24 @ 13:05 by Sapna Weeks CNM) Blood pressure elevated without history of HTN Moderate obstructive sleep apnea Bilateral shoulder pain Bilateral knee pain Obesity Tobacco abuse Anemia Impaired glucose tolerance Asthma Surgical History S/P STEVE-BSO H/O colonoscopy Hx of breast surgery History of section Family History Father Stroke Mother No problems noted. Brother No problems noted. Sister Bipolar 1 disorder Son No problems noted. Daughter No problems noted. 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 Cognitive needs: No Hearing needs: No Vision needs: Yes Female Reproductive History Menstrual Age of Menarche: 11 Total pregnancies: 3 Full term: 3 Number of Living Children: 3 Date of last pap smear: 02/02/23 (neg pap and hpv) Date of Mammogram: 05/12/23 (Birad 2) Review of Systems Const All systems reviewed & are unremarkable except as noted in HPI and below Reports as per HPI Eyes Reports no additional complaints ENT Reports no additional complaints Card Reports no additional complaints Resp Reports no additional complaints GI Reports as per HPI and Reports no additional complaints Reports as per HPI Musc Reports no additional complaints Skin/Breast Reports as per HPI Neuro Reports no additional complaints Psych Reports no additional complaints Endo Reports no additional complaints Talon/Lymph Reports no additional complaints Aller/Immun Reports no additional complaints Physical Exam Vital Signs: Last Vital Signs BP 126/72 05/09/24 12:47 BMI result Body Mass Index 56.0 Const General: cooperative, healthy appearing, no acute distress, well developed and alert Orientation/consciousness: patient oriented x3 HEENT Head: Yes normal to inspection Eyes General: appearance normal, both eyes and all related structures Neck Neck: Yes normal visual inspection Thyroid: Thyroid normal Chest Chest palpation & inspection: normal inspection of the chest and other (no puckering, dimpling, peau de orange, retraction, discharge, masses) Breast/axilla inspection: normal inspection of the breasts Breast/axilla palpation: normal palpation of the breasts Resp Effort & Inspection: normal respiratory effort GI Inspection: Yes normal to inspection and Yes obesity Palpation (GI): Soft to palpation Rectal Exam - Female: deferred General: Yes bladder normal to palpation External Female Exam: normal external appearance and normal appearance of the urethra Speculum Exam - Vagina: normal appearance of the vagina, normal palpation and normal vaginal discharge Speculum Exam - Cervix: Cervix absent (Vaginal cuff no lesions or nodules) and Cervical tenderness present Bimanual exam- vagina & uterus: normal bimanual exam, normal palpation, bladder normal to palpation, Cervical tenderness present and uterus absent Bimanual Exam- Adnexa, other: no masses Skin General skin exam: no rashes or lesions noted Rashes: no rashes Neuro General: patient oriented x3 Cognition (Neuro): normal cognition Extrem General: Yes normal to inspection Psych Attitude: cooperative Thought process: Normal thought process present Assessment & Plan Assessment & Plan (1) Encounter for well woman exam with routine gynecological exam: Code(s): Z01.419 - Encounter for gynecological examination (general) (routine) without abnormal findings Category: Medical Plan Discussed: Current recommendations for pap smears per ASCCP guidelines. Breast awareness, periodic self breast exams and yearly mammogram. Maintain a healthy lifestyle, well balanced diet including Calcium 1,200 mg and Vitamin D 600 IU daily, and routine exercise. Patient verbalizes understanding and agrees to the plan of care. She was given opportunity to ask questions and all questions were answered to the best of my ability. RTO in 1 year for annual merchant patroller exam. This note is constructed using voice recognition software. While every effort has been made to ensure accuracy, road conductor errors may have been included. Coding Level of Care Code Est Pt Prev Care 40-64y(96388) Diagnoses Encounter for well woman exam with routine gynecological exam Z01.419
[2024-05-09 12:47] VITALS: BP 126/72; BMI 56.0
== END 2024-05-09 13:58 | disposition home or self-care (01) ==
PROVIDERS: PCP Internal Medicine; Visit Provider Advanced Practice Midwife
DX: Z01.419 Encounter for gynecological examination (general) (routine) without abnormal findings (principal)
CPT/HCPCS: 99396

== ENCOUNTER → 2024-05-09 12:35 | Outpatient (BNVA) | payer OTHER, SELFPAY | PROVIDERS: PCP Internal Medicine; Visit Provider Advanced Practice Midwife | DX: Z01.419 Encounter for gynecological examination (general) (routine) without abnormal findings (principal) | CPT/HCPCS: 99396 ==

== ENCOUNTER 2024-05-17 12:32 | Outpatient (REF) | payer OTHER, SELFPAY ==
--- NOTE | ~2024-05-17 | MM_ITS ---
EXAMINATION: MM SCREENING DIGITAL BREAST TOMOSYNTHESIS, BILATERAL CLINICAL INFORMATION: Screening. Asymptomatic. COMPARISON: Mammography: Comparison is made with available priors TECHNIQUE: Digital breast mammography with tomosynthesis is performed in both the craniocaudal and mediolateral oblique views along with computer-aided detection (CAD). FINDINGS: There are scattered areas of fibroglandular density (ACR BI-RADS breast composition Category b). Right marker clip. There are no significant masses, abnormal calcifications, or other abnormalities. MM/MM tomosynthesis screening BI IMPRESSION: No mammographic evidence of malignancy. ASSESSMENT: BI-RADS BI-RADS 2 - Benign Findings RECOMMENDATION: Routine annual mammography screening. 1 year F/U This examination should not preclude the clinical evaluation of a suspicious palpable abnormality. This patient's information was entered into a reminder system with a target due date for their next mammogram. Electronically signed by: Maryann Lam DO 05/25/2024 10:16 AM CAILIN
== END 2024-05-17 12:33 | disposition home or self-care (01) ==
LOC: HO.MAMMO 12:32
PROVIDERS: PCP Internal Medicine; Visit Provider Internal Medicine
DX: Z12.31 Encounter for screening mammogram for malignant neoplasm of breast (principal)
CPT/HCPCS: 77063; 77067

== ENCOUNTER → 2024-05-17 13:15 | Outpatient (BNV) | payer OTHER, SELFPAY | PROVIDERS: PCP Internal Medicine; Visit Provider Internal Medicine | DX: Z12.31 Encounter for screening mammogram for malignant neoplasm of breast (principal) | CPT/HCPCS: 77063; 77067 ==

== ENCOUNTER 2024-09-13 10:58 | Outpatient (AMB) | payer OTHER, SELFPAY ==
--- NOTE | 2024-09-13 11:01 | MHC.PC.OV ---
Vital Signs 09/13/24 11:03 Height 5 ft Weight 296 lb 6 oz BMI 57.9 BP 140/68 H Blood Pressure Location Lt brachial Position Sitting Pulse 78 Pulse Source Pulse Oximeter Temp 96.8 F Temp Source Temporal Artery Scan Pulse Oximetry (%) 98 Oxygen Delivery Method Room Air Intake Visit Reasons: 6 MONTH FOLLOW UP Intake Note: Patient is here to follow up on HTN. 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 per policy Accompanied by: Self / Same As Patient Allergies No Known Allergies Allergy (Verified 09/13/24 11:03) Medication List - Last Reconciled 09/13/24 by Trista Hartmann PA-C albuterol sulfate 90 mcg/actuation (ProAir HFA) 2 puffs inhalation Q4-6H PRN blood pressure monitor (Blood Pressure Kit) As directed, xtra large cuff cane As directed lisinopril 20 mg PO DAILY 30 days naproxen (EC-Naproxen) 500 mg PO Q12H PRN Tobacco use date assessed: 09/13/24 Dental Screening Dental Screen Date: 09/13/24 Did you have a dental visit in the last 12 months?: No Did you have a dental problem in the last 6 months where you did not have access to dental care?: No Was dental information given to patient?: No HPI 6 MONTH FOLLOW UP HPI Details 54-year-old female with past medical history of impaired glucose tolerance, obesity, hypertension, asthma, hypercholesterolemia last seen 12/[address] Esposito coming in for follow up.? In review of the notes, patient had annual well-woman exam 04/2024. Presenting with asthma exacerbation and medication management. She has been experiencing exacerbated asthma symptoms, including congestion and a persistent cough, which began following an illness two months ago. She recently ran out of her prescribed antihypertensive medication, which she has not taken for one week, although she previously self-reported normal blood pressure levels at home. She has been experiencing persistent knee pain aggravated by her current living conditions, specifically stairs, which complicate her arthritis management. [facility] Medical History Blood pressure elevated without history of HTN Moderate obstructive sleep apnea Bilateral shoulder pain Bilateral knee pain Obesity Tobacco abuse Anemia Impaired glucose tolerance Asthma Surgical History S/P STEVE-BSO H/O colonoscopy Hx of breast surgery History of section Family History Father Stroke Mother No problems noted. Brother No problems noted. Sister Bipolar 1 disorder Son No problems noted. Daughter No problems noted. 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 1. Little interest or pleasure in doing things: not at all 2. Feeling down, depressed, or hopeless: not at all 3. Trouble falling or staying asleep, or sleeping too much: not at all 4. Feeling tired or having little energy: not at all 5. Poor appetite or overeating: not at all 6. Feeling bad about yourself - or that you are a failure or have let yourself or your family down: not at all 7. Trouble concentrating on things, such as reading the newspaper or watching television: not at all 8. Moving or speaking so slowly that other people could have noticed. Or the opposite - being so fidgety or restless that you have been moving around a lot more than usual: not at all 9. Thoughts that you would be better off or of hurting yourself in some way: not at all Total score: 0 Depression Screening Interpretation: Negative Depression Screening Done: Yes Source: Developed by Drs. Kiko Blackman, Arabella García, Valentin Cardozo and colleagues, with an educational alethea from [employer]. Thrive Questionnaire Date Thrive assessed: 09/13/24 I am a: Patient What is your living situation today?: I have a steady place to live Within the past 12 months, did the food you bought not last and you didn't have the money to get more?: Never true Within the past 12 months, did you worry whether your food would run out before you got money to buy more?: Never true Do you have trouble paying for medicines?: No Do you have trouble getting transportation to medical appointments?: No Do you have trouble paying your heating and electricity bill?: No Do you have trouble taking care of your child, family member or friend?: No Do you have trouble with day-to-day activities such as bathing, preparing meals, shopping, managing finances, etc.?: No Are you currently unemployed and looking for a job?: No Are you interested in more education?: No Please select the resources that you would like help with: None Currently or been in a relationship where the following occur: No concerns reported THRIVE Score: 0 AUDIT C Alcohol Use Questionnaire (AUDIT-C) 2. How many drinks containing alcohol do you have on a typical day when you are drinking?: 1 or 2 3. How often do you have six or more drinks on one occasion?: Weekly Total Score: 3 STACY-7 AMB Questionnaire STACY-7 Date STACY - 7 assessed: 09/13/24 Feeling nervous, anxious, or on edge: 0 = Not at all Not being able to stop or control worryin = Not at all Worrying too much about different things: 0 = Not at all Trouble relaxin = Not at all Being so restless that it is hard to sit still: 0 = Not at all Becoming easily annoyed or irritable: 0 = Not at all Feeling afraid as if something awful might happen: 0 = Not at all Total STACY-7 score (0-4 normal; 5-9 mild; 10-14 moderate; 15-21 severe): 0 Source: Developed by Drs. Kiko Blackman, Arabella García, Valentin Cardozo and colleagues, with an educational alethea from [employer]. Review of Systems Const Denies body aches, Denies chills, Denies fever(s), Denies headache(s) and Denies poor appetite Eyes Reports no additional complaints ENT Denies dysphagia, Denies dizziness, Denies headache(s) and Denies odynophagia Card Denies chest pain, Denies syncope, Denies edema, Denies irregular heart rhythm, Denies lightheadedness and Denies dyspnea Resp Denies cough and Denies dyspnea GI Denies abdominal pain, Denies constipation, Denies dysphagia, Denies diarrhea, Denies nausea, Denies odynophagia and Denies vomiting Reports no additional complaints Musc Details: Bilateral knee pain. Swelling of bilateral legs with prolonged standing Reports no additional complaints and Denies abnormal gait Skin/Breast Reports system reviewed and no additional complaints, except as documented Neuro Denies abnormal gait, Denies dizziness, Denies syncope and Denies headache(s) Psych Reports no additional complaints Physical exam (Primary Care) Vital Signs: Last Vital Signs Temp 96.8 F 09/13/24 11:03 Pulse 78 09/13/24 11:03 BP 140/68 H 09/13/24 11:03 Pulse Ox 98 09/13/24 11:03 Oxygen Delivery Method Room Air 09/13/24 11:03 BMI result Body Mass Index 57.9 Tobacco/Smoking Status: Tobacco use Status Tobacco use date assessed 09/13/24 09/13/24 11:09 Patient Tobacco Use Status Former Tobacco user 09/13/24 11:09 Tobacco use type Cigarette 09/13/24 11:09 e-Cigarette/Vaping Use Never Used 09/13/24 11:09 PHQ-9: PHQ-9 Score PHQ-9: Total score 0 09/13/24 11:09 Depression Screening Interpretation: Negative Thrive Assessment: Date of Thrive Assessment Date Thrive assessed 09/13/24 09/13/24 11:09 Currently or been in a relationship where the following occur: No concerns reported Const General: cooperative, healthy appearing, comfortable and no acute distress Orientation/consciousness: patient oriented x3 [facility] Head: Yes normocephalic Ears: hearing grossly normal bilaterally General nose exam: Normal external nose present Eyes General: appearance normal, both eyes and all related structures Conjunctivae: conjunctivae normal Neck Neck: Yes full ROM and Yes no lymphadenopathy Resp Effort & Inspection: normal respiratory effort Auscultation: clear to auscultation bilaterally, no crackles, no rales, no rhonchi and no wheezes Cardio Rate: regular rate Rhythm: regular rhythm Skin General skin exam: no rashes or lesions noted Neuro General: patient oriented x3 Gait exam (Neuro): Normal gait present Extrem Other: Bilateral leg swelling without tenderness to palpation redness or warmth General: Yes normal to inspection, Yes full ROM and No edema Psych Affect: normal affect Attitude: cooperative Insight: Good insight present (Psych) Judgement: Good judgement present (Psych) Coding Level of Care Code Est Pt Level 3 (53258) Diagnoses Hypercholesterolemia E78.00 Hypertension I10 Impaired glucose tolerance R73.02 Mild intermittent asthma without complication J45.20 Asthma severity: mild Asthma persistence: intermittent Asthma complication type: uncomplicated Class 3 severe obesity due to excess calories with serious comorbidity and body mass index (BMI) of 50.0 to 59.9 in adult E66.01; Z68.43 Obesity type: due to excess calories Obesity classification: adult class 3 (BMI >= 40) Serious obesity comorbidity presence: with serious comorbidity Body mass index: BMI 50.0-59.9 Bilateral leg edema R60.0 Assessment & Plan Assessment & Plan (1) Hypercholesterolemia: Code(s): E78.00 - Pure hypercholesterolemia, unspecified Category: Medical Plan: Avoid foods that are high in cholesterol such as red meat, fried foods, eggs and baked goods. Triglyceride goal of less than 150 and LDL goal of less than 130. Ordered for updated blood work (2) Hypertension: Code(s): I10 - Essential (primary) hypertension Category: Medical Plan: Continue on current blood pressure medication. Avoid salt intake and encourage healthy diet and regular exercise. Blood pressure mildly elevated today. Patient has been without medication for about 1 week refilled prescription advised to follow up in 6 weeks (3) Impaired glucose tolerance: Code(s): R73.02 - Impaired glucose tolerance (oral) Category: Medical Plan: Decrease the amount of carbohydrates such as pasta, bread, rice, and potatoes and limit the amount of sweets. Although fruits are generally healthy they should be eaten in moderation as they are still high in sugar. (4) Asthma: Code(s): J45.909 - Unspecified asthma, uncomplicated Category: Medical Qualifiers: Asthma severity: mild Asthma persistence: intermittent Asthma complication type: uncomplicated Qualified Code(s): J45.20 - Mild intermittent asthma, uncomplicated Plan: Asthma currently controlled on present medications. Continue on albuterol as needed.? Avoid triggers such as allergies. Continue to use albuterol as needed and please reach out to the office if breathing worsens or does not improve with the use of albuterol. No wheezing on exam today. Follow up in 6 weeks (5) Obesity: Code(s): E66.9 - Obesity, unspecified Category: Medical Qualifiers: Obesity type: due to excess calories Obesity classification: adult class 3 (BMI >= 40) Serious obesity comorbidity presence: with serious comorbidity Body mass index: BMI 50.0-59.9 Qualified Code(s): E66.01 - Morbid (severe) obesity due to excess calories; Z68.43 - Body mass index [BMI] 50.0-59.9, adult Plan: Healthy diet and regular exercise is encouraged. (6) Bilateral leg edema: Code(s): R60.0 - Localized edema Category: Medical Plan: Symptoms most consistent with venous insufficiency. Advised patient to use compression stockings, exercise as tolerated and elevate the legs when possible. Prescription for cane sent due to leg swelling contributing to her limited mobility. Low suspicion for DVT at this time continue to monitor symptoms. Reviewed with patient red flag symptoms and when to present for re-evaluation. Plan Patient was informed and verbally consented to the use of an ambient scribe for clinic note documentation during this visit. This note was constructed using voice recognition software. While every effort has been made to ensure accuracy and night warehouse selector, still areas may have been included sometimes these areas may affect the content or meeting of the given symptoms. Total time spent caring for the patient today was 20 minutes. This includes time spent before the visit reviewing the chart, time spent during the visit, and time spent after the visit and documentation. Orders: Orders Lipid Panel Today E78.00 - Pure hypercholesterolemia, unspecified Hemoglobin A1c Today R73.02 - Impaired glucose tolerance (oral) Complete Blood Count Auto Diff Today Z00.00 - Encounter for general adult medical examination without abnormal findings Vitamin B12 and Folate Today Z00.00 - Encounter for general adult medical examination without abnormal findings Vitamin D 25-OH Total Today Z00.00 - Encounter for general adult medical examination without abnormal findings Comprehensive Met. Panel Today Z00.00 - Encounter for general adult medical examination without abnormal findings TSH reflex Free T4 Today Z00.00 - Encounter for general adult medical examination without abnormal findings Referrals Medical Weight Management Referral E66.01 - Morbid (severe) obesity due to excess calories, Z68.43 - Body mass index [BMI] 50.0-59.9, adult Medications: New meloxicam 7.5 mg PO DAILY PRN 30 tabs 0RF pain Changed From albuterol sulfate 90 mcg/actuation (ProAir HFA) 2 puffs inhalation Q4-6H PRN 8.5 grams 0RF shortness of breath or wheezing J45.909 - Unspecified asthma, uncomplicated To albuterol sulfate 90 mcg/actuation 2 puffs inhalation Q4-6H PRN 8.5 grams 1RF shortness of breath or wheezing J45.909 - Unspecified asthma, uncomplicated From lisinopril 20 mg PO DAILY 30 days 30 tabs 1RF I10 - Essential (primary) hypertension To lisinopril 20 mg PO DAILY 90 tabs 1RF I10 - Essential (primary) hypertension Refilled cane As directed 1 ea 0RF M17.10 - Unilateral primary osteoarthritis, unspecified knee, M19.019 - Primary osteoarthritis, unspecified shoulder Discontinued naproxen (EC-Naproxen) Discontinued Reason: Patient no longer taking 500 mg PO Q12H PRN 20 tabs 0RF pain M17.10 - Unilateral primary osteoarthritis, unspecified knee
[2024-09-13 11:03] VITALS: BP 140/68; PULSE 78; TEMP 36; O2SAT 98; BMI 57.9
== END 2024-09-13 11:34 | disposition home or self-care (01) ==
PROVIDERS: PCP Internal Medicine
DX: E78.00 Pure hypercholesterolemia, unspecified (principal); I10 Essential (primary) hypertension; E66.01 Morbid (severe) obesity due to excess calories; Z68.43 Body mass index [BMI] 50.0-59.9, adult; R73.02 Impaired glucose tolerance (oral); J45.20 Mild intermittent asthma, uncomplicated; R60.0 Localized edema

== ENCOUNTER → 2024-09-13 10:58 | Outpatient (BNVA) | payer OTHER, SELFPAY | PROVIDERS: PCP Internal Medicine | DX: E78.00 Pure hypercholesterolemia, unspecified (principal); R73.02 Impaired glucose tolerance (oral); I10 Essential (primary) hypertension; J45.20 Mild intermittent asthma, uncomplicated; E66.01 Morbid (severe) obesity due to excess calories; Z68.43 Body mass index [BMI] 50.0-59.9, adult; R60.0 Localized edema | CPT/HCPCS: 99212 ==

== ENCOUNTER 2024-10-06 10:59 | Outpatient (REF) | payer OTHER, SELFPAY ==
[2024-10-06 11:08] LABS: MANUAL DIFF FLAG NO
[2024-10-06 11:14] LABS: Basophils Percent Auto 0.4 % (0-2); Eosinophils Absolute Auto 0.1 X10*3/uL (0.0-0.4); Eosinophils Percent Auto 0.5 % (0-4); Hematocrit 40.6 % (37.0-47.0); Hemoglobin 13.4 g/dl (12.0-16.0); Imm Gran Abs Auto 0.03 X10*3/uL (0.00-0.03); Imm Gran Pct Auto 0.3 % (0.0-0.4); Lymphocytes Absolute Auto 2.3 X10*3/uL (1.2-4.9); Lymphocytes Percent Auto 22.1 % (20-40); Mean Corpuscular Volume 87.9 fL (80.0-98.0); Mean Platelet Volume 9.2 fL (9.4-12.3); Monocytes Absolute Auto 0.6 X10*3/uL (0.1-1.2); Monocytes Percent Auto 5.9 % (2-11); Neutrophils Absolute Auto 7.3 x10*3/uL (2.0-8.3); Neutrophils Percent Auto 70.8 % (45-73); Platelet Count 360 X10*3/uL (160-400); Red Blood Count 4.62 X10*6/uL (4.20-5.50); Red Cell Distribution Width 13.4 % (11.0-16.0); White Blood Count 10.4 X10*3/uL (4.8-10.8)
[2024-10-06 11:23] LABS: Estimated Average Glucose 117 mg/dL; Hemoglobin A1c % 5.7 % (<6.0)
[2024-10-06 11:53] LABS: Alanine Aminotransferase 17 U/L (0-31); Albumin Level 4.3 g/dL (3.5-5.0); Alkaline Phosphatase 127 U/L (39-117); Anion Gap 14 (12-20); Aspartate Amino Transferase 16 U/L (5-31); Bilirubin Total 0.4 mg/dL (0.0-1.0); Blood Urea Nitrogen 12 mg/dL (9-16); Calcium 9.1 mg/dL (8.4-10.2); Carbon Dioxide 25 mmol/L (22-29); Chloride 108 mmol/L (96-108); Cholesterol 183 mg/dL (<200); Estimated Glomerular Filt Rate > 60; Glucose Random 116 mg/dL (60-115); HDL Cholesterol 58 mg/dL (>40); LDL Cholesterol Calculated 90 mg/dL (<100); Potassium 4.5 mmol/L (3.3-5.1); Sodium 142 mmol/L (135-145); Total Protein 8.4 g/dL (6.5-8.0); Triglycerides 177 mg/dL (<150)
[2024-10-06 12:09] LABS: TSH reflex Free T4 0.66 uIU/mL (0.32-4.0); Vitamin D 25-OH Total 16.6 ng/mL (>30)
[2024-10-06 12:24] LABS: Folate 7.7 ng/mL (> or = 4.0); Vitamin B12 358 pg/mL (200-900)
== END 2024-10-06 11:00 | disposition home or self-care (01) ==
LOC: HO.LAB 10:59
DX: Z00.00 Encounter for general adult medical examination without abnormal findings (principal); E78.00 Pure hypercholesterolemia, unspecified; R73.02 Impaired glucose tolerance (oral)
CPT/HCPCS: 36415; 80053; 80061; 82306; 82607; 82746; 83036; 84443; 85025

== ENCOUNTER 2024-10-26 10:52 | Outpatient (AMB) | payer OTHER, SELFPAY ==
--- NOTE | 2024-10-26 11:03 | MHC.PC.OV ---
Vital Signs 10/26/24 11:04 Height 5 ft Weight 300 lb 6 oz BMI 58.7 BP 110/70 Blood Pressure Location Lt brachial Position Sitting Pulse 81 Pulse Source Pulse Oximeter Temp 97.1 F Temp Source Temporal Artery Scan Pulse Oximetry (%) 98 Oxygen Delivery Method Room Air Intake Visit Reasons: 6 weeks f/u Intake Note: Patient is here to follow up on Asthma Bilateral leg edema and Hypercholesterolemia. Audit Practice Intern Required: No Lead Software Test Engineer: Not Required per policy Accompanied by: Self / Same As Patient Allergies No Known Allergies Allergy (Verified 10/26/24 11:12) Medication List - Last Reconciled 10/26/24 by Trista Hartmann PA-C albuterol sulfate 90 mcg/actuation 2 puffs inhalation Q4-6H PRN blood pressure monitor (Blood Pressure Kit) As directed, xtra large cuff cane As directed cholecalciferol (vitamin D3) 25 mcg PO DAILY lisinopril 20 mg PO DAILY meloxicam 7.5 mg PO DAILY PRN Tobacco use date assessed: 10/26/24 Dental Screening Dental Screen Date: 09/13/24 HPI 6 weeks f/u HPI Details 54-year-old female with past medical history of impaired glucose tolerance, obesity, hypertension, asthma, hypercholesterolemia last seen 08/2024 coming in for follow up. Presenting for follow-up regarding multiple health concerns: asthma, hypertension, vitamin D deficiency, and leg swelling. Asthma is currently stable without albuterol use due to financial constraints. Essential hypertension was previously uncontrolled but now stabilized with resumed adherence to daily medication. Vitamin D deficiency identified; the patient noted difficulties acquiring supplements. Leg swelling worsens when sitting, more pronounced on one side, improved by elevation. Patient has not been utilizing elevation or compression stockings [facility] Medical History Blood pressure elevated without history of HTN Moderate obstructive sleep apnea Bilateral shoulder pain Bilateral knee pain Obesity Tobacco abuse Anemia Impaired glucose tolerance Asthma Surgical History S/P STEVE-BSO H/O colonoscopy Hx of breast surgery History of section Family History Father Stroke Mother No problems noted. Brother No problems noted. Sister Bipolar 1 disorder Son No problems noted. Daughter No problems noted. 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 Kiko Blackman, Arabella García, Valentin Cardozo and colleagues, with an educational alethea from [employer]. Review of Systems Const Denies body aches, Denies chills, Denies fever(s), Denies headache(s) and Denies poor appetite Eyes Reports no additional complaints ENT Denies dizziness and Denies headache(s) Card Denies chest pain, Denies lightheadedness and Denies dyspnea Resp Denies cough and Denies dyspnea GI Denies abdominal pain, Denies constipation, Denies diarrhea, Denies nausea and Denies vomiting Reports no additional complaints Musc Reports no additional complaints and Denies abnormal gait Skin/Breast Reports system reviewed and no additional complaints, except as documented Neuro Denies abnormal gait, Denies dizziness and Denies headache(s) Psych Reports no additional complaints Physical exam (Primary Care) Vital Signs: Last Vital Signs Temp 97.1 F 10/26/24 11:04 Oxygen Delivery Method Room Air 10/26/24 11:04 BMI result Body Mass Index 58.7 Tobacco/Smoking Status: Tobacco use Status Tobacco use date assessed 10/26/24 10/26/24 11:07 Patient Tobacco Use Status Former Tobacco user 10/26/24 11:03 Tobacco use type Cigarette 10/26/24 11:03 e-Cigarette/Vaping Use Never Used 10/26/24 11:03 Thrive Assessment: Date of Thrive Assessment Date Thrive assessed 02/27/25 04/11/25 11:03 Const General: cooperative, healthy appearing, comfortable and no acute distress Orientation/consciousness: patient oriented x3 HENMT Head: Yes normocephalic Ears: hearing grossly normal bilaterally General nose exam: Normal external nose present Eyes General: appearance normal, both eyes and all related structures Conjunctivae: conjunctivae normal Neck Neck: Yes full ROM and Yes no lymphadenopathy Resp Effort & Inspection: normal respiratory effort Auscultation: clear to auscultation bilaterally, no crackles, no rales, no rhonchi and no wheezes Cardio Rate: regular rate Rhythm: regular rhythm Skin General skin exam: no rashes or lesions noted Neuro General: patient oriented x3 Gait exam (Neuro): Normal gait present Extrem General: Yes normal to inspection, Yes full ROM and No edema Psych Affect: normal affect Attitude: cooperative Insight: Good insight present (Psych) Judgement: Good judgement present (Psych) Coding Level of Care Code Est Pt Level 3 (37175) Diagnoses Hypertension I10 Hypertriglyceridemia E78.1 Impaired glucose tolerance R73.02 Mild intermittent asthma without complication J45.20 Asthma severity: mild Asthma persistence: intermittent Asthma complication type: uncomplicated Class 3 severe obesity due to excess calories with serious comorbidity and body mass index (BMI) of 50.0 to 59.9 in adult E66.01; Z68.43 Obesity type: due to excess calories Obesity classification: adult class 3 (BMI >= 40) Serious obesity comorbidity presence: with serious comorbidity Body mass index: BMI 50.0-59.9 Bilateral leg edema R60.0 Assessment & Plan Assessment & Plan (1) Hypertension: Code(s): I10 - Essential (primary) hypertension Category: Medical Plan: Continue on current blood pressure medication. Avoid salt intake and encourage healthy diet and regular exercise. (2) Hypertriglyceridemia: Code(s): E78.1 - Pure hyperglyceridemia Category: Medical Plan: Avoid foods that are high in cholesterol such as red meat, fried foods, eggs and baked goods. Triglyceride goal of less than 150 and LDL goal of less than 130. (3) Impaired glucose tolerance: Code(s): R73.02 - Impaired glucose tolerance (oral) Category: Medical Plan: Decrease the amount of carbohydrates such as pasta, bread, rice, and potatoes and limit the amount of sweets. Although fruits are generally healthy they should be eaten in moderation as they are still high in sugar. (4) Asthma: Code(s): J45.909 - Unspecified asthma, uncomplicated Category: Medical Qualifiers: Asthma severity: mild Asthma persistence: intermittent Asthma complication type: uncomplicated Qualified Code(s): J45.20 - Mild intermittent asthma, uncomplicated Plan: Asthma currently controlled on present medications. Continue on albuterol as needed. Avoid triggers such as allergies. (5) Obesity: Code(s): E66.9 - Obesity, unspecified Category: Medical Qualifiers: Obesity type: due to excess calories Obesity classification: adult class 3 (BMI >= 40) Serious obesity comorbidity presence: with serious comorbidity Body mass index: BMI 50.0-59.9 Qualified Code(s): E66.01 - Morbid (severe) obesity due to excess calories; Z68.43 - Body mass index [BMI] 50.0-59.9, adult Plan: Healthy diet and regular exercise is encouraged. (6) Bilateral leg edema: Code(s): R60.0 - Localized edema Category: Medical Plan: Leg edema is stable no new symptoms, no rash and no worsening pain. Low suspicion for DVT at this time. Advised patient to use compression stockings and elevation for symptom management. Plan This note was constructed using voice recognition software. While every effort has been made to ensure accuracy and net sorter, still areas may have been included sometimes these areas may affect the content or meeting of the given symptoms. Total time spent caring for the patient today was 20 minutes. This includes time spent before the visit reviewing the chart, time spent during the visit, and time spent after the visit and documentation. Patient was informed and verbally consented to the use of an ambient scribe for clinic note documentation during this visit. Medications: Refilled cholecalciferol (vitamin D3) 25 mcg PO DAILY 90 caps 3RF
[2024-10-26 11:04] VITALS: BP 110/70; PULSE 81; TEMP 36.2; O2SAT 98; BMI 58.7
== END 2024-10-26 11:30 | disposition home or self-care (01) ==
LOC: HO.HMCH 10:53
PROVIDERS: PCP Internal Medicine
DX: I10 Essential (primary) hypertension (principal); E78.1 Pure hyperglyceridemia; E66.01 Morbid (severe) obesity due to excess calories; Z68.43 Body mass index [BMI] 50.0-59.9, adult; R73.02 Impaired glucose tolerance (oral); J45.20 Mild intermittent asthma, uncomplicated; R60.0 Localized edema

== ENCOUNTER → 2024-10-26 10:52 | Outpatient (BNVA) | payer OTHER, SELFPAY | PROVIDERS: PCP Internal Medicine | DX: I10 Essential (primary) hypertension (principal); E78.1 Pure hyperglyceridemia; R73.02 Impaired glucose tolerance (oral); J45.20 Mild intermittent asthma, uncomplicated; E66.01 Morbid (severe) obesity due to excess calories; Z68.43 Body mass index [BMI] 50.0-59.9, adult; R60.0 Localized edema | CPT/HCPCS: 99212 ==

== ENCOUNTER 2025-01-28 11:19 | Outpatient (AMB) | payer OTHER, SELFPAY ==
[2025-01-28 11:38] VITALS: BP 106/58; PULSE 74; TEMP 36.2; O2SAT 97; BMI 57.8
--- NOTE | 2025-01-28 11:38 | MHC.PC.OV ---
Vital Signs 01/28/25 11:38 Height 5 ft Weight 296 lb 2 oz BMI 57.8 BP 106/58 L Blood Pressure Location Lt brachial Position Sitting Pulse 74 Pulse Source Pulse Oximeter Temp 97.1 F Temp Source Temporal Artery Scan Pulse Oximetry (%) 97 Oxygen Delivery Method Room Air Intake Visit Reasons: Annual Exam Tie Tamper Required: No Accompanied by: Self / Same As Patient Allergies No Known Allergies Allergy (Verified 01/28/25 11:45) Medication List - Last Reconciled 01/28/25 by Spike Esposito MD albuterol sulfate 90 mcg/actuation 2 puffs inhalation Q4-6H PRN blood pressure monitor (Blood Pressure Kit) As directed, xtra large cuff cane As directed cholecalciferol (vitamin D3) 25 mcg PO DAILY lisinopril 20 mg PO DAILY Tobacco use date assessed: 10/26/24 Dental Screening Dental Screen Date: 09/13/24 HPI Annual Exam HPI Details has seen bariatric and on a diet and surgery planned 02/2025. occ nausea PFSH Medical History (Updated 01/28/25 @ 12:38 by Spike Esposito MD) Constipation Blood pressure elevated without history of HTN Moderate obstructive sleep apnea Bilateral shoulder pain Bilateral knee pain Obesity Tobacco abuse Anemia Impaired glucose tolerance Asthma Surgical History S/P STEVE-BSO H/O colonoscopy Hx of breast surgery History of section Family History (Updated 01/28/25 @ 12:35 by Spike Esposito MD) Father Stroke Mother No problems noted. Brother No problems noted. Sister Bipolar 1 disorder Son No problems noted. Daughter No problems noted. 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 1. Little interest or pleasure in doing things: not at all 2. Feeling down, depressed, or hopeless: not at all 3. Trouble falling or staying asleep, or sleeping too much: not at all 4. Feeling tired or having little energy: not at all 5. Poor appetite or overeating: not at all 6. Feeling bad about yourself - or that you are a failure or have let yourself or your family down: not at all 7. Trouble concentrating on things, such as reading the newspaper or watching television: not at all 8. Moving or speaking so slowly that other people could have noticed. Or the opposite - being so fidgety or restless that you have been moving around a lot more than usual: not at all 9. Thoughts that you would be better off or of hurting yourself in some way: not at all Total score: 0 Source: Developed by Drs. Kiko Blackman, Arabella García, Valentin Cardozo and colleagues, with an educational alethea from [employer] Thrive Questionnaire Date Thrive assessed: 09/13/24 I am a: Patient What is your living situation today?: I have a steady place to live Within the past 12 months, did the food you bought not last and you didn't have the money to get more?: Never true Within the past 12 months, did you worry whether your food would run out before you got money to buy more?: Never true Do you have trouble paying for medicines?: No Do you have trouble getting transportation to medical appointments?: No Do you have trouble paying your heating and electricity bill?: No Do you have trouble taking care of your child, family member or friend?: No Do you have trouble with day-to-day activities such as bathing, preparing meals, shopping, managing finances, etc.?: No Are you currently unemployed and looking for a job?: Yes Are you interested in more education?: No Please select the resources that you would like help with: None Currently or been in a relationship where the following occur: No concerns reported THRIVE Score: 0 AUDIT C Alcohol Use Questionnaire (AUDIT-C) 1. How often do you have a drink containing alcohol?: Monthly or less Total Score: 1 STACY-7 AMB Questionnaire STACY-7 Date STACY - 7 assessed: 09/13/24 Feeling nervous, anxious, or on edge: 0 = Not at all Not being able to stop or control worryin = Not at all Worrying too much about different things: 0 = Not at all Trouble relaxin = Not at all Being so restless that it is hard to sit still: 0 = Not at all Becoming easily annoyed or irritable: 0 = Not at all Feeling afraid as if something awful might happen: 0 = Not at all Total STACY-7 score (0-4 normal; 5-9 mild; 10-14 moderate; 15-21 severe): 0 Source: Developed by Drs. Kiko Blackman, Arabella García, Valentin Cardozo and colleagues, with an educational alethea from [employer] Review of Systems Const Denies poor appetite and Denies weakness Eyes Denies no additional complaints ENT Reports Normal hearing present, Denies dizziness, Denies nasal congestion, Denies tinnitus and Denies sore throat Card Denies chest pain, Denies syncope, Denies rapid heart rate and Denies dyspnea Resp Denies cough and Denies dyspnea GI Denies change in stool character, Reports constipation, Denies diarrhea, Denies nausea and Denies vomiting Denies urinary frequency, Denies difficulty voiding and Denies dysuria Neuro Reports Normal hearing present, Denies confusion, Denies dizziness, Denies syncope and Denies weakness Psych Denies confusion Physical exam (Primary Care) Vital Signs: Last Vital Signs Temp 97.1 F 01/28/25 11:38 Pulse 74 01/28/25 11:38 BP 106/58 L 01/28/25 11:38 Pulse Ox 97 01/28/25 11:38 Oxygen Delivery Method Room Air 01/28/25 11:38 BMI result Body Mass Index 57.8 Tobacco/Smoking Status: Tobacco use Status Tobacco use date assessed 10/26/24 01/28/25 11:41 Patient Tobacco Use Status Former Tobacco user 01/28/25 12:36 Tobacco use type Cigarette 01/28/25 12:36 e-Cigarette/Vaping Use Never Used 01/28/25 12:36 PHQ-9: PHQ-9 Score PHQ-9: Total score 0 01/28/25 12:32 Thrive Assessment: Date of Thrive Assessment Date Thrive assessed 09/13/24 01/28/25 11:41 Currently or been in a relationship where the following occur: No concerns reported Const General: No confusion Orientation/consciousness: No confusion HENMT Head: Yes normocephalic Ears: external ears normal and TM's normal bilaterally Face and sinus: Yes normal facial exam Mouth: moist mucous membranes Throat: Yes tonsils normal Eyes Conjunctivae: conjunctivae normal Pupils: Equal, round and reactive pupils present and Pupil accommodation reflex normal Direct Ophthalmoscopy: normal light reflex Neck Neck: No lymphadenopathy Thyroid: Thyroid normal Chest Chest palpation & inspection: normal inspection of the chest Resp Effort & Inspection: normal respiratory effort and no audible wheezes Auscultation: clear to auscultation bilaterally, no crackles, no wheezes and lung sounds not diminished Cardio Rate: regular rate Rhythm: regular rhythm Peripheral pulses: radial pulses present and dorsalis pedis present GI Palpation (GI): no masses Auscultation: normal bowel sounds and normoactive bowel sounds Rectal Exam - Female: deferred Skin General skin exam: no rashes or lesions noted Rashes: no rashes Neuro General: No confusion Cranial nerves: Yes Equal, round and reactive pupils present and Yes Normal hearing present Cognition (Neuro): normal cognition Gait exam (Neuro): Normal gait present Motor exam (neuro): 5/5 motor strength present throughout Deep tendon reflexes (DTR's): Right brachioradialis reflex intensity grade: 2+, Left brachioradialis reflex intensity grade: 2+, Right patellar reflex intensity grade: 2+ and Left patellar reflex intensity grade: 2+ Extrem General: No edema Results AMB Hemoglobin A1c AMB Hemoglobin A1c 5.8 % Last Edit by LARA Ngo on 01/28/25 11:47 Results Reviewed Results Reviewed: Laboratory Last Values Hgb A1c (Clinic) 5.8 % (4.0-6.0) 01/28/25 11:31 Coding Level of Care Code Est Pt Prev Care 40-64y(16540) Diagnoses Annual physical exam Z00.00 Hypertension I10 Hypercholesterolemia E78.00 Impaired glucose tolerance R73.02 Mild intermittent asthma without complication J45.20 Asthma complication type: uncomplicated Asthma persistence: intermittent Asthma severity: mild Morbid obesity E66.01 Constipation K59.00 Assessment & Plan Assessment & Plan (1) Annual physical exam: Code(s): Z00.00 - Encounter for general adult medical examination without abnormal findings Category: Medical Plan: Patient is advised to eat healthy, keep well hydrated, keep active and have adequate sleep. (2) Hypertension: Code(s): I10 - Essential (primary) hypertension Category: Medical Plan: Continue with blood pressure medication. Decrease salt intake and exercise on lisinopril 20 mg once a day (3) Hypercholesterolemia: Code(s): E78.00 - Pure hypercholesterolemia, unspecified Category: Medical Plan: Avoid fried foods, chicken skin, eggs, butter margarine, pastries and meat. Be it pork or beef they have a lot of cholesterol LDL goal of less than 130 and triglyceride of less than 150 (4) Impaired glucose tolerance: Code(s): R73.02 - Impaired glucose tolerance (oral) Category: Medical Plan: Decrease the amount of carbohydrate intake, pasta, bread, rice and potatoes are all sugar and that is aside from all the sweet stuff, remember that fruits are good but they are Sweet also. (5) Asthma: Code(s): J45.909 - Unspecified asthma, uncomplicated Category: Medical Qualifiers: Asthma complication type: uncomplicated Asthma persistence: intermittent Asthma severity: mild Qualified Code(s): J45.20 - Mild intermittent asthma, uncomplicated Plan: Continue with albuterol inhaler as needed (6) Morbid obesity: Code(s): E66.01 - Morbid (severe) obesity due to excess calories Category: Medical Plan: Patient has met with bariatric surgeon (7) Constipation: Code(s): K59.00 - Constipation, unspecified Category: Medical Plan History of Present Illness The patient is a 55-year-old female presenting for an annual physical examination and management of chronic conditions. The patient has a history of systemic lupus erythematosus, which has been managed over the years with regular follow-ups. She also has morbid obesity with a BMI of 57.8 and has been consulting with a bariatric surgeon to discuss potential surgical interventions. The patient has impaired glucose tolerance with a recent hemoglobin A1c of 5.8, indicating a slight increase from previous levels. She is not currently diabetic but is advised to monitor her diet closely. Asthma is managed with an albuterol inhaler as needed, and she reports no recent exacerbations. Anemia has been noted in the past, but recent blood work shows normal blood counts. The patient suffers from osteoarthritis of the knee, which contributes to her difficulty in maintaining physical activity. She experiences pain in her shoulders and knees, which is managed with naproxen and previously with meloxicam. Hypertension is controlled with lisinopril 20 mg daily, and her blood pressure readings have been stable. Hypercholesterolemia is being managed with dietary modifications, aiming for an LDL goal of less than 130 mg/dL. The patient has a history of vitamin D deficiency, for which she is taking supplements. She reports constipation and is advised to increase water intake and consume more green leafy vegetables. Health Maintenance - Mammogram up to date as of April 2024 - Colonoscopy performed in August 2021 - Shingles and tetanus vaccinations are current - Advised to increase water intake and consume more green leafy vegetables for constipation management - Discussed weight management strategies with bariatric surgeon Social History - Alcohol consumption: Patient reports drinking one bottle of wine weekly and is attempting to reduce intake. - Smoking: Patient denies current tobacco use. - Diet: Patient is following a diet plan recommended by the bariatric surgeon, focusing on portion control. - Exercise: Patient reports difficulty maintaining physical activity due to osteoarthritis. Review of Systems - General: Denies fever, chills, or weight loss. - Cardiovascular: Denies chest pain or palpitations. - Respiratory: Reports occasional dyspnea; denies cough or wheezing. - Gastrointestinal: Reports constipation; denies nausea or vomiting. - Musculoskeletal: Reports joint pain in knees and shoulders. - Neurological: Denies dizziness or syncope. Physical Exam General: Cooperative, healthy appearing, comfortable, no acute distress and well developed Orientation: Patient oriented x3 Limitations: No limitations Head: Normal to inspection Ears: Hearing grossly normal bilaterally Nose: Normal external nose present Face and sinus: Normal facial exam Eyes: Appearance normal, both eyes and all related structures Neck: Normal visual inspection and Yes full ROM Respiratory: Normal respiratory effort and able to speak in complete sentences. Clear to auscultation bilaterally Cardiovascular: Regular rate and rhythm. Normal S1 and S2 GI: Normal to inspection. Soft to palpation and nontender, but patient reports constipation and difficulty with bowel movements Skin: No rashes or lesions noted Neuro: Patient oriented x3 Extremities: Normal to inspection, but patient reports knee osteoarthritis and shoulder pain due to arthritis Results - Labs: Normal blood count, normal electrolytes, renal function good, hemoglobin A1c 5.8, triglycerides 177 mg/dL, low vitamin D. Plan The patient will continue to manage systemic lupus erythematosus with regular follow-ups and monitoring. For morbid obesity, the patient is advised to adhere to the dietary plan provided by the bariatric surgeon and consider surgical options in the future. Impaired glucose tolerance will be monitored with regular blood glucose checks and dietary modifications to prevent progression to diabetes. Asthma management will continue with the use of an albuterol inhaler as needed. For osteoarthritis, the patient will use naproxen for pain management and is advised to maintain physical activity as tolerated. Hypertension will be managed with lisinopril 20 mg daily, and blood pressure will be monitored regularly. Hypercholesterolemia management includes dietary changes with a goal of reducing LDL cholesterol to less than 130 mg/dL. Vitamin D deficiency will be addressed with continued supplementation. Constipation will be managed with increased water intake, dietary fiber, and possibly medication as needed. Patient was informed and verbally consented to the use of an ambient scribe for clinic note documentation during this visit. Discussion Notes During the visit, we discussed the management of systemic lupus erythematosus and the importance of regular follow-ups. We reviewed the patient's morbid obesity and the potential for bariatric surgery, emphasizing adherence to the dietary plan. I explained the significance of monitoring impaired glucose tolerance and maintaining a healthy diet to prevent diabetes. Asthma management was reviewed, with a recommendation to continue using the albuterol inhaler as needed. We discussed osteoarthritis pain management with naproxen and encouraged maintaining physical activity. Hypertension management with lisinopril was confirmed, and the importance of regular blood pressure monitoring was highlighted. We addressed hypercholesterolemia with dietary changes aimed at reducing LDL cholesterol levels. Vitamin D supplementation was advised to address deficiency. Constipation management was discussed, including dietary modifications and potential medication use. Patient Instructions - Continue regular follow-ups for lupus management. - Follow the dietary plan from the bariatric surgeon and consider surgical options. - Monitor blood glucose levels and maintain a healthy diet to prevent diabetes. - Use albuterol inhaler as needed for asthma symptoms. - Take naproxen for osteoarthritis pain and stay active as tolerated. - Continue lisinopril 20 mg daily for hypertension and monitor blood pressure regularly. - Implement dietary changes to lower LDL cholesterol. - Continue vitamin D supplementation. - Increase water intake and dietary fiber for constipation management. Orders: Orders AMB Hemoglobin A1c Today R73.02 - Impaired glucose tolerance (oral) Medications: New sennosides-docusate sodium 8.6-50 mg (Senna Plus) 2 tab-caps (2 x 8.6-50 mg) PO BEDTIME 60 caps 2RF K59.00 - Constipation, unspecified Changed From naproxen 500 mg PO BID 7 days PRN 14 tabs 0RF pain K59.00 - Constipation, unspecified To naproxen 500 mg PO BID PRN 60 tabs 0RF pain 30 days K59.00 - Constipation, unspecified
--- OUTSIDE RECORDS SUMMARY | 2025-01-28 12:27 | XMS_ITS | Clinical Summary ---
Author Organization [address] [place] [address] [place] [id number] Phone Care Team Providers Care Bus Transportation Manager Name Role Phone Spike Esposito MD Primary Care Provider [phone] Allergies No known active allergies Medications lisinopriL (PRINIVIL,ZESTR IL) 20 mg tablet Take 1 tablet (20 mg total) by mouth 1 (one) time each day. 09/13/2024 Active Vitamin D3 25 mcg (1,000 unit) capsule Take 1 capsule (1,000 Units total) by mouth 1 (one) time each day. 10/26/2024 Active EC-Naproxen 500 mg EC tablet Take 1 tablet (500 mg total) by mouth every 12 (twelve) hours if needed. for pain 01/12/2024 Active Active Problems Problem Noted Date Diagnosed Date Class 3 severe obesity witho ut serious comorbidity with body mass index (BMI) of 50.0 to 59.9 in adult (CMS/[facility] V24, [facility] V28) 12/31/2024 Class 3 severe obesity witho ut serious comorbidity with body mass index (BMI) of 50.0 to 59.9 in adult ([facility] V24, CMS/[facility] V28) 12/31/2024 Encounters Date Type Department Care Team Description 12/31/2024 2:00 PM EDT Consult Bariatric Surgery - [address] [id number] Class 3 severe obesity without serious comorbidity with body mass index (BMI) of 50.0 to 59.9 in adult, unspecified obesity type (CMS/[facility] V24, CMS/[facility] V28) (Primary Dx) 11/19/2024 2:30 PM EDT Consult Bariatric Surgery - [address] [id number] Hayden Ortiz MD Class 3 severe obesity due to excess calories with body mass index (BMI) of 50.0 to 59.9 in adult, unspecified whether serious comorbidity present (CMS/HCC V24, CMS/HCC V28) (Primary Dx) from Last 3 Months Social History Tobacco Use Types Packs/Day Years Used Date Smoking Tobacco: Never Assessed Comments Unknown Sex and Gender Information Value Date Recorded Sex Assigned at Not on file Legal Sex Female 4:02 PM EDT Gender Identity Not on file Sexual Orientation Not on file Last Filed Vital Signs Vital Sign Reading Time Taken Comments Blood Pressure 160/75 11/19/2024 2:14 PM EDT Pulse 91 11/19/2024 2:14 PM EDT Temperature 36.6 C (97.8 F) 11/19/2024 2:14 PM EDT Respiratory Rate - - Oxygen Saturation - - Inhaled Oxygen Concentration - - Weight 135 kg (298 lb) 12/31/2024 2:06 PM EDT Height 154.9 cm (5' 1 ) 11/19/2024 2:14 PM EDT Body Mass Index 56.31 11/19/2024 2:14 PM EDT Plan of Treatment Upcoming Encounters Date Type Department Care Team (Late st Contact Info) Description 03/08/2025 12:30 PM EDT Telemedicine Bariatric Surgery - [address] [id number] Jayne Gregg, RD [address] [id number] Health Maintenance Due Date Last Done Comments Breast Cancer Screening 1970 Hepatitis B Vaccines (1 of 3 - 19+ 3-dose series) 01/12/1987 Cervical Cancer Screening: Pap Smear 01/12/1989 Pneumococcal Vaccine: 50+ Years (2 of 2 - PCV) 10/05/2022 10/05/2021 Cholesterol Screening (Lipid Panel) 11/06/2024 Colorectal Cancer Screening: Colonoscopy 11/06/2024 Depression Screening 11/06/2024 HIV Screening 11/06/2024 Hepatitis C Screening 11/06/2024 Social Influencers of Health Screening 11/06/2024 Hypertension/CHF/CAD Annual BMP Blood Test 11/19/2024 Influenza Vaccine (#1) 2025 , 07/22/2022, 04/22/2021, Additional history exists COVID-19 Vaccine (6 - Moderna risk season) 2025 10/06/2024, 04/21/2023, 08/14/2021, Additional history exists DTaP,Tdap,and Td Vaccines (3 - Td or Tdap) 10/06/2034 10/06/2024, 10/05/2021 Zoster Vaccines Completed 10/06/2024, 04/21/2023 HIB Vaccines Aged Out No longer eligi ble based on patient's age to complete this topic HPV Vaccines Aged Out No longer eligi ble based on patient's age to complete this topic Hepatitis A Vaccines Aged Out No long er eligible based on patient's age to complete this topic IPV Vaccines Aged Out No longer eligi ble based on patient's age to complete this topic MMR Vaccines Aged Out No longer eligi ble based on patient's age to complete this topic Meningococcal ACWY Vaccine Aged Out N o longer eligible based on patient's age to complete this topic Meningococcal B Vaccine Aged Out No l onger eligible based on patient's age to complete this topic RSV Immunization Patients Under 20 months Aged Out No longer eligible based on patient's age to complete this topic Varicella Vaccines Aged Out No longer eligible based on patient's age to complete this topic Insurance apt.[address] [place] [id number] [employer] Care Teams Bus Transportation Manager Relationship Specialty Start Date End Date Spike Esposito MD [address] [facility] [address] [facility] [place] [address] PCP - General Internal Medicine 11/05/24
== END 2025-01-28 12:51 | disposition home or self-care (01) ==
LOC: HO.HMCH 11:20
PROVIDERS: PCP Internal Medicine; Visit Provider Internal Medicine
DX: Z00.00 Encounter for general adult medical examination without abnormal findings (principal); I10 Essential (primary) hypertension; E66.01 Morbid (severe) obesity due to excess calories; Z68.43 Body mass index [BMI] 50.0-59.9, adult; E78.00 Pure hypercholesterolemia, unspecified; R73.02 Impaired glucose tolerance (oral); J45.20 Mild intermittent asthma, uncomplicated; K59.00 Constipation, unspecified

== ENCOUNTER → 2025-01-28 11:19 | Outpatient (BNVA) | payer OTHER, SELFPAY | PROVIDERS: PCP Internal Medicine; Visit Provider Internal Medicine | DX: Z00.00 Encounter for general adult medical examination without abnormal findings (principal); I10 Essential (primary) hypertension; E78.00 Pure hypercholesterolemia, unspecified; R73.02 Impaired glucose tolerance (oral); J45.20 Mild intermittent asthma, uncomplicated; E66.01 Morbid (severe) obesity due to excess calories; Z68.43 Body mass index [BMI] 50.0-59.9, adult; K59.00 Constipation, unspecified; Z79.899 Other long term (current) drug therapy; Z13.31 Encounter for screening for depression | CPT/HCPCS: 83036; 99396 ==

== ENCOUNTER 2025-05-23 11:23 | Outpatient (REF) | payer OTHER, SELFPAY | END 2025-05-23 11:24 | disposition home or self-care (01) | LOC: HO.MAMMO 11:23 | PROVIDERS: PCP Internal Medicine; Visit Provider Internal Medicine | DX: Z12.31 Encounter for screening mammogram for malignant neoplasm of breast (principal) | CPT/HCPCS: 77063; 77067 ==

== ENCOUNTER → 2025-05-23 12:15 | Outpatient (BNV) | payer OTHER, SELFPAY | PROVIDERS: PCP Internal Medicine; Visit Provider Internal Medicine | DX: Z12.31 Encounter for screening mammogram for malignant neoplasm of breast (principal) | CPT/HCPCS: 77063; 77067 ==